=== PATIENT | female | born 1965 | race Caucasian/White ===

== ENCOUNTER → 2019-07-02 | Outpatient (CLI) | payer OTHER ==
--- NOTE | 2019-07-02 14:41 | KCIC ---
MR of the right shoulder HISTORY: Subacromial bursitis. Pain for a few days. TECHNIQUE: Routine multiplanar sequences are obtained. FINDINGS: There is mild image degradation due to motion and body habitus. Acromioclavicular joint is mildly degenerative. Small undersurface osteophytes. Full-thickness rotator cuff tear of the anterior supraspinatus tendon measures about 2.5 cm AP diameter. Tendinosis and partial tearing through the more posterior rotator cuff. Partial subscapularis tendon tear. Moderate muscle atrophy. Mild fluid in the subacromial subdeltoid bursa. Multiple well-defined bodies within the anterior and posterior subdeltoid bursa compatible with loose osteochondral bodies measuring up to 8 mm diameter. Small glenohumeral joint effusion. No advanced degenerative change or acute articular cartilage defect. No evidence of labral tear or detachment. Biceps tendon demonstrates mild medial subluxation, perched over the upper lesser tuberosity. Tendon is mildly attenuated with mild increased signal. No bone destruction or acute fracture. IMPRESSION: 1. Moderate full-thickness rotator cuff tear with retraction of the supraspinatus tendon. Partial tearing through the infraspinatus and subscapularis tendon. 2. Mild fluid in the glenohumeral joint and subdeltoid bursa. Multiple osteochondral loose bodies within the subdeltoid bursa. 3. Biceps tendinosis with mild medial subluxation. Electronically signed by: Julio Cesar Mcconnell MD (07/02/2019 2:38 PM) [facility]
== END | disposition home or self-care (01) ==
LOC: KCIC MRI 12:53
PROVIDERS: ATTEND Orthopaedic Surgery
DX: S46.011A Strain of muscle(s) and tendon(s) of the rotator cuff of right shoulder, initial encounter (principal); S43.081A Other subluxation of right shoulder joint, initial encounter; M25.711 Osteophyte, right shoulder; M62.511 Muscle wasting and atrophy, not elsewhere classified, right shoulder; M25.411 Effusion, right shoulder; M24.011 Loose body in right shoulder; M75.21 Bicipital tendinitis, right shoulder; M75.51 Bursitis of right shoulder; Z96.641 Presence of right artificial hip joint; X58.XXXA Exposure to other specified factors, initial encounter; Y93.89 Activity, other specified; Y92.89 Other specified places as the place of occurrence of the external cause; Y99.8 Other external cause status
CPT/HCPCS: 73221

== ENCOUNTER 2019-08-06 09:33 | Day surgery (SDC) | payer OTHER ==
[~2019-08-06] VITALS: Ht 172.7 cm; Wt 145.0 kg
[~2019-08-06 09:33] MED LIST: HYDROmorphone 2 MG/ML VIAL IV PRN; IV RINGERS,LACTATED 1000ML 1,000 ML IV SCH; LIDOCAINE 1% PF 2 ML VIAL. ID PRN; LIDOCAINE 2% PF 5 ML VIAL. ONE; MORPHINE SULFATE 2 MG/ML VIAL. IV PRN; ONDANSETRON PF 4 MG/2 ML VIAL. IV PRN; PROCHLORPERAZINE 10 MG/2 ML VIAL. IV PRN; PROPOFOL 20 ML IV ONE; ROCURONIUM 50 MG/5 ML VIAL. ONE; ceFAZolin SODIUM 3 GM in IV DEXTROSE 5% 100ML 100 ML IV PRN; fentaNYL PF VIAL 100 MCG/2 ML VIAL IV PRN; fentaNYL PF VIAL 100 MCG/2 ML VIAL ONE
[2019-08-06] MEDS ORDERED: AMLO10TA4 PO (10:15)
[2019-08-06] MEDS ORDERED: IBUP-1027 PO (10:15)
[2019-08-06] MEDS ORDERED: ESCITALOPRAM OX20 MG PO (10:17)
[2019-08-06] MEDS ORDERED: BUPR150T8 PO (10:17)
[2019-08-06] MEDS ORDERED: HYDR-2145 PO (10:19)
[2019-08-06] MEDS ORDERED: ATOR20TA PO (10:20)
[2019-08-06] MEDS ORDERED: OMEG1CAP27 PO (10:21)
[2019-08-06] MEDS ORDERED: MULT1TAB52 PO (10:21)
[2019-08-06 10:44] LABS: BASO % 1 % (0-3); EOS # 0.1 x10^3/uL (0.0-0.7); EOS % 2 % (0-3); HEMATOCRIT 40.1 % (36.0-47.0); HEMOGLOBIN 13.7 g/dL (12.0-15.5); LYMPH # 1.4 x10^3/uL (1.0-4.8); LYMPH % 24 % (24-48); MEAN CORPUSCULAR HEMOGLOBIN 30 pg (25-35); MEAN CORPUSCULAR HGB CONC 34 g/dL (31-37); MEAN CORPUSCULAR VOLUME 88 fL (79-100); MONO # 0.4 x10^3/uL (0.0-1.1); MONO % 7 % (0-9); NEUT # 3.9 x10^3/uL (1.8-7.7); NEUT % 66 % (31-73); PLATELET COUNT 185 x10^3/uL (140-400); RED BLOOD COUNT 4.58 x10^6/uL (3.50-5.40); RED CELL DISTRIBUTION WIDTH 14.7 % (11.5-14.5); WHITE BLOOD COUNT 5.9 x10^3/uL (4.0-11.0)
[2019-08-06 10:51] LABS: CREATININE 0.7 mg/dL (0.6-1.0); GFR 87.5; POTASSIUM 3.5 mmol/L (3.5-5.1)
[2019-08-06] MEDS ORDERED: EPINEPHrine VIAL 30 MG/30 ML VIAL ONE (10:56)
[2019-08-06] MEDS ORDERED: SCOPOLAMINE 1.5MG PATCH. TD SCH (11:00)
[2019-08-06] MEDS ORDERED: MIDAZOLAM HCL/PF 2 MG/2 ML VIAL. ONE (11:53)
[2019-08-06] MEDS ORDERED: EPINEPHrine 1 MG/ML VIAL ONE (11:53)
[2019-08-06] MEDS ORDERED: BUPIVACAINE MPF 0.5% 30 ML VIAL. ONE (11:53)
[2019-08-06] MEDS ORDERED: DEXAMETHASONE SOD PHOS 4 MG/ML VIAL ONE ×2 (11:55→13:00)
[2019-08-06] MEDS ORDERED: FAMOTIDINE 20 MG/2 ML VIAL ONE (13:00)
[2019-08-06] MEDS ORDERED: ONDANSETRON PF 4 MG/2 ML VIAL. ONE (13:00)
[2019-08-06] MEDS ORDERED: DESFLURANE 61 TO 120 MINUTES IH ONE (13:11)
[2019-08-06] MEDS ORDERED: PROPOFOL 20 ML IV ONE (13:49)
[2019-08-06] MEDS ORDERED: VECURONIUM BOLUS 10 MG VIAL. IV ONE (14:19)
[2019-08-06] MEDS ORDERED: 0.9 % SODIUM CHLORIDE 20 ML VIAL. IJ ONE (14:19)
[2019-08-06] MEDS ORDERED: DESFLURANE > 120 MINUTES IH ONE (15:19)
[2019-08-06] MEDS ORDERED: NEOSTIGMINE METHYLSULFATE 5 MG/5 ML SYRINGE. ONE (15:20)
[2019-08-06] MEDS ORDERED: GLYCOPYRROLATE 1 MG/5 ML VIAL. ONE (15:20)
[2019-08-06] MEDS ORDERED: OXYC1TAB19 PO (16:02)
--- NOTE | 2019-08-06 16:04 | DISCH ---
DISCHARGE INSTRUCTIONS Condition on Discharge Condition on Discharge: Stable Activity After Discharge Activity Instructions for Disc: Other, see below (immobilizer on at all times at night may remove during day for gentle pendulum exercises and for showering) Driving Instructions after Dis: Do not drive today Diet after Discharge Diet after Discharge: Regular Wound Incision Care Wound/Incision Care: Ice to area for comfort, Change dressing (May remove dressing in 2 days may then shower no soaking until sutures removed) Community/Resources/Services Services at Discharge: PT EVALUATE & TREAT (plan start of physical therapy on follow-up visit) Contacting the after DC Call your doctor for: Concerns you may have Follow-Up Follow up with: Dr. Mcmahon 10 days SEEMA MCMAHON MD Aug 06, 2019 16:04
[2019-08-06 18:00] VITALS: BP 143/73
--- NOTE | 2019-08-06 18:43 | PDOC4 ---
Operative Note Operative Note Date of surgery: 08/06/2019 Preoperative diagnosis: Full-thickness retracted rotator cuff tear of supraspinatus, acromioclavicular degenerative change and pain, subacromial impingement and biceps pain and fraying Postoperative diagnosis: Same with involvement of anterior supraspinatus with a large retracted tear Operative procedure: Right shoulder arthroscopy arthroscopic subacromial decompression distal clavicle excision and biceps tenotomy and mini open rotator cuff repair Surgeon: Lisandro Anesthesia: Gen. Estimated blood loss: 25 mL Complications: None Operative indications: Please see my preoperative clinic notes for detailed operative indications Operative text: Patient was identified procedure verified patient placed in the supine position on the operating table. After adequate amounts of general anesthesia with plus pre-existing scalene block were obtained she was placed in the decubitus position right side up all bony prominences were well-padded and the right shoulder was examined under anesthesia found a full range of motion no instability. The right shoulder was then prepped and draped in standard sterile fashion and after timeout was performed patient procedure identified and florencia ified standard posterior portal was established anterior portal established using spinal needle localization and the shoulder joint was systematically examined. She was noted to have a large retracted full-thickness tear of the supraspinatus and infraspinatus tendons, biceps tendon was noted to have significant fraying, and was tenotomized, glenohumeral joint was overall well-maintained subacromial space was then entered and the rotator cuff was mobilized and a large anterior acromial spur converted to a type I acromion using cutting block technique with an arthroscopic bur, and distal clavicle excision was carried out to 1 cm to allow adequate joint space. After any bony fragments were cleared away the rotator cuff footprint was prepared with the arthroscopic bur and a total of 3 traction sutures were placed in the rotator cuff tendon to ensure adequate mobility to the footprint area. Given the need for visualization and large nature of the tear I elected to then convert to a mini open incision deltoid splitting laterally and a total of 2 absorbable double loaded anchors from [employer] were placed along the medial row and sutures passed in a simple fashion lateral row fixation incorporated both anchors sutures as well as the traction sutures and were secured laterally with a link anchor obtaining excellent apposition to the medial footprint. The repair was examined in all degrees of internal/external rotation deltoid fascia closed with Vicryl suture subcutaneous closure of the mini open incision and portals with buried Vicryl suture and skin closure with Monocryl suture Steri-Strips and Mastisol. Sterile dressings were applied patient was placed in an immobilizer returned to recovery room in stable condition having tolerated procedure well SEEMA HERNANDEZ MD Aug 06, 2019 18:43
== END 2019-08-06 18:18 | disposition home or self-care (01) ==
LOC: SURG 09:33
PROVIDERS: ATTEND Orthopaedic Surgery
DX: M75.111 Incomplete rotator cuff tear or rupture of right shoulder, not specified as traumatic (principal); M19.011 Primary osteoarthritis, right shoulder; M75.41 Impingement syndrome of right shoulder; M66.821 Spontaneous rupture of other tendons, right upper arm; I10 Essential (primary) hypertension; E78.5 Hyperlipidemia, unspecified; F32.9 Major depressive disorder, single episode, unspecified; Z96.641 Presence of right artificial hip joint; Z98.890 Other specified postprocedural states; Z98.51 Tubal ligation status; Z87.891 Personal history of nicotine dependence; Z72.89 Other problems related to lifestyle
CPT/HCPCS: 23412; 29824; 29826; 29999; 36415; 80048; 85025; A7015; C1713; J0171; J1100; J2001; J2250; J2405; J2704; J2710; J3010; J3490; J7120

== ENCOUNTER 2019-08-21 08:29 | Inpatient (IN) | payer OTHER ==
[~2019-08-21] VITALS: Ht 170.2 cm; Wt 145.1 kg
[~2019-08-21 08:29] MED LIST changes: +AMLO10TA4 PO; +ATOR20TA PO; +BUPR150T8 PO; +ESCITALOPRAM OX20 MG PO; +HYDR-2145 PO; -HYDROmorphone 2 MG/ML VIAL IV PRN; +IBUP-1027 PO; -IV RINGERS,LACTATED 1000ML 1,000 ML IV SCH; -LIDOCAINE 1% PF 2 ML VIAL. ID PRN; -LIDOCAINE 2% PF 5 ML VIAL. ONE; -MORPHINE SULFATE 2 MG/ML VIAL. IV PRN; +MULT1TAB52 PO; +OMEG1CAP27 PO; -ONDANSETRON PF 4 MG/2 ML VIAL. IV PRN; +OXYC1TAB19 PO; -PROCHLORPERAZINE 10 MG/2 ML VIAL. IV PRN; -PROPOFOL 20 ML IV ONE; -ROCURONIUM 50 MG/5 ML VIAL. ONE; -ceFAZolin SODIUM 3 GM in IV DEXTROSE 5% 100ML 100 ML IV PRN; -fentaNYL PF VIAL 100 MCG/2 ML VIAL IV PRN; -fentaNYL PF VIAL 100 MCG/2 ML VIAL ONE
--- NOTE | 2019-08-21 10:08 | EKG ---
[facility] [address] [place] [address] Test Date: 2019-08-21 Test Time: 09:59:42 Pat Name: KRISTIE MILLS Department: Room: Gender: F Reporting Manager: : [id number] Requested By: SUZANNE DOE Order Number: [id number] Reading MD: Javy Lagos MD Measurements Intervals [place] Rate: 83 P: 142 WV: 136 QRS: 36 QRSD: 90 T: 17 QT: 416 QTc: 495 Interpretive Statements SINUS RHYTHM RBBB Electronically Signed On 08-31-2019 10:24:04 CDT by Javy Lagos MD
[2019-08-21 10:22] LABS: BASO % 0 % (0-3); EOS # 0.1 x10^3/uL (0.0-0.7); EOS % 2 % (0-3); HEMATOCRIT 38.7 % (36.0-47.0); HEMOGLOBIN 13.1 g/dL (12.0-15.5); LYMPH # 0.9 x10^3/uL (1.0-4.8); LYMPH % 12 % (24-48); MEAN CORPUSCULAR HEMOGLOBIN 30 pg (25-35); MEAN CORPUSCULAR HGB CONC 34 g/dL (31-37); MEAN CORPUSCULAR VOLUME 88 fL (79-100); MONO # 0.4 x10^3/uL (0.0-1.1); MONO % 5 % (0-9); NEUT # 5.6 x10^3/uL (1.8-7.7); NEUT % 80 % (31-73); PLATELET COUNT 235 x10^3/uL (140-400); RED BLOOD COUNT 4.41 x10^6/uL (3.50-5.40); RED CELL DISTRIBUTION WIDTH 15.8 % (11.5-14.5)
[2019-08-21 10:33] LABS: CALCIUM 9.5 mg/dL (8.5-10.1); CREATININE 0.8 mg/dL (0.6-1.0); POTASSIUM 3.2 mmol/L (3.5-5.1)
[2019-08-21 10:41] LABS: ALBUMIN 3.8 g/dL (3.4-5.0); MAGNESIUM 1.8 mg/dL (1.8-2.4); TOTAL BILIRUBIN 0.5 mg/dL (0.2-1.0); TOTAL PROTEIN 7.6 g/dL (6.4-8.2)
--- NOTE | 2019-08-21 11:08 | PHYS DOC ---
Past Medical History Past Medical History: Depression, High Cholesterol, Hypertension Past Surgical History: Hip Replacement, Tonsillectomy, Tubal ligation, Other Additional Past Surgical Histo: FOOT,CONE BX,BACK, R rotator cuff Alcohol Use: Occasionally Drug Use: None Adult General Chief Complaint Chief Complaint: LOWER EXTREMITY EDEMA HPI HPI Patient is a 54 year old female who presents to the ER with complaints of bilateral lower extremity swelling, redness, warmth, and tenderness for the last week. She states that she had her right shoulder rotator cuff repaired by Dr. Mcmahon 2 weeks ago and denies any known injury to her legs. Pt states she has been a bit more sedentary since having the surgery. She denies any fever, numbness, tingling, or weakness of her lower extremities. She denies any chest pain, but reports increased shortness of breath with activity. She denies any wheezing or cough. Currently she rates her pain a 5/10 on the pain scale, she has been taking oxycodone 7.5/325 mg tablets as prescribed for her shoulder pain and that has also helped with the leg pain. She reports the pain increases with walking or palpation. Review of Systems Review of Systems Constitutional: Denies fever or chills [] Eyes: Denies change in visual acuity, redness, or eye pain [] HENT: Denies nasal congestion or sore throat [] Respiratory: Denies cough; see HPI Cardiovascular: No additional information not addressed in HPI [] GI: Denies abdominal pain, nausea, vomiting, or diarrhea [] : Denies dysuria or hematuria [] Musculoskeletal: See HPI Integument: See HPI Neurologic: Denies headache, focal weakness or sensory changes [] Endocrine: Denies polyuria or polydipsia [] All other systems were reviewed and found to be within normal limits, except as documented in this note. Current Medications Current Medications Current Medications Medications (Trade) Dose Ordered Sig/Esau Start Time Stop Time Status Last Admin Dose Admin Info (CONTRAST GIVEN -- Rx MONITORING) 1 each PRN DAILY PRN 08/21/19 11:30 08/23/19 11:29 Iohexol (Omnipaque 350 Mg/ml) 100 ml 1X ONCE 08/21/19 11:15 08/21/19 11:16 DC 08/21/19 12:20 100 ML Oxycodone/ Acetaminophen (Percocet 7.5/ 325) 1 tab 1X ONCE 08/21/19 11:45 08/21/19 11:46 DC 08/21/19 11:41 1 TAB Potassium Chloride (Klor-Con) 40 meq 1X ONCE 08/21/19 11:15 08/21/19 11:16 DC 08/21/19 11:35 40 MEQ Sodium Chloride 1,000 ml @ 1,000 mls/hr 1X ONCE 08/21/19 11:30 08/21/19 12:29 DC 08/21/19 11:34 1,000 MLS/HR Vancomycin HCl (Vanco Per Pharmacy) 1 each PRN DAILY PRN 08/21/19 13:00 08/21/19 15:51 1 EACH Vancomycin HCl 2 gm/Sodium Chloride 500 ml @ 250 mls/hr 1X ONCE 08/21/19 13:00 08/21/19 14:59 DC 08/21/19 13:14 250 MLS/HR Allergies Allergies Allergies Coded Allergies Type Severity Reaction Last Updated Verified No Known Drug Allergies 08/06/19 No Physical Exam Physical Exam Constitutional: Well developed, well nourished, no acute distress, non-toxic appearance, obese. [] HENT: Normocephalic, atraumatic, bilateral external ears normal, nose normal. [] Eyes: PERRLA, EOMI, conjunctiva normal, no discharge. [] Neck: Normal range of motion, no stridor. [] Cardiovascular:Heart rate regular rhythm, no murmur [] Lungs & Thorax: Bilateral breath sounds clear to auscultation [] Abdomen: soft, no tenderness, no masses, no pulsatile masses. [] Skin: Warm, dry; BLE redness and warmth consistent with cellulitis Back: No tenderness Extremities: Bilateral lower extremity tenderness to palpation, no bony tenderness, no cyanosis, no clubbing, ROM intact, 2+ edema BLE, 2+ pedal and posterior tibial pulses BLE Neurologic: Alert and oriented X 3, no focal deficits noted. [] Psychologic: Affect normal, judgement normal, mood normal. [] Current Patient Data Vital Signs Vital Signs Date Time Temp Pulse Resp B/P (MAP) Pulse Ox O2 Delivery O2 Flow Rate FiO2 08/21/19 12:57 88 25 151/75 (100) 94 Room Air 08/21/19 09:02 98.3 98.3 Lab Values Laboratory Tests Test 08/21/19 09:48 08/21/19 11:30 White Blood Count 7.0 x10^3/uL (4.0-11.0) Red Blood Count 4.41 x10^6/uL (3.50-5.40) Hemoglobin 13.1 g/dL (12.0-15.5) Hematocrit 38.7 % (36.0-47.0) Mean Corpuscular Volume 88 fL (79-100) Mean Corpuscular Hemoglobin 30 pg (25-35) Mean Corpuscular Hemoglobin Concent 34 g/dL (31-37) Red Cell Distribution Width 15.8 % (11.5-14.5) H Platelet Count 235 x10^3/uL (140-400) Neutrophils (%) (Auto) 80 % (31-73) H Lymphocytes (%) (Auto) 12 % (24-48) L Monocytes (%) (Auto) 5 % (0-9) Eosinophils (%) (Auto) 2 % (0-3) Basophils (%) (Auto) 0 % (0-3) Neutrophils # (Auto) 5.6 x10^3/uL (1.8-7.7) Lymphocytes # (Auto) 0.9 x10^3/uL (1.0-4.8) L Monocytes # (Auto) 0.4 x10^3/uL (0.0-1.1) Eosinophils # (Auto) 0.1 x10^3/uL (0.0-0.7) Basophils # (Auto) 0.0 x10^3/uL (0.0-0.2) D-Dimer (Sivan) 1.61 ug/mlFEU (0.00-0.50) H Sodium Level 141 mmol/L (136-145) Potassium Level 3.2 mmol/L (3.5-5.1) L Chloride Level 101 mmol/L (98-107) Carbon Dioxide Level 34 mmol/L (21-32) H Anion Gap 6 (6-14) Blood Urea Nitrogen 13 mg/dL (7-20) Creatinine 0.8 mg/dL (0.6-1.0) Estimated GFR (Cockcroft-Gault) 75.0 BUN/Creatinine Ratio 16 (6-20) Glucose Level 136 mg/dL (70-99) H Calcium Level 9.5 mg/dL (8.5-10.1) Magnesium Level 1.8 mg/dL (1.8-2.4) Total Bilirubin 0.5 mg/dL (0.2-1.0) Aspartate Amino Transferase (AST) 20 U/L (15-37) Alanine Aminotransferase (ALT) 34 U/L (14-59) Alkaline Phosphatase 66 U/L (46-116) Total Protein 7.6 g/dL (6.4-8.2) Albumin 3.8 g/dL (3.4-5.0) Albumin/Globulin Ratio 1.0 (1.0-1.7) Urine Collection Type Void Urine Color Yellow Urine Clarity Clear Urine pH 7.5 Urine Specific Mohler 1.010 Urine Protein Negative mg/dL (NEG-TRACE) Urine Glucose (UA) Negative mg/dL (NEG) Urine Ketones (Stick) Negative mg/dL (NEG) Urine Blood Negative (NEG) Urine Nitrite Negative (NEG) Urine Bilirubin Negative (NEG) Urine Urobilinogen Dipstick 0.2 mg/dL (0.2 mg/dL) Urine Leukocyte Esterase Negative (NEG) Urine RBC Occ /HPF (0-2) Urine WBC Rare /HPF (0-4) Urine Squamous Epithelial Cells Mod /LPF Urine Bacteria Few /HPF (0-FEW) Urine Mucus Slight /LPF Laboratory Tests 08/21/19 09:48 Laboratory Tests 08/21/19 09:48 EKG EKG 0959- SR rate 83, nonspecific changes, RBBB, no STEMI, read by Dr. Steel. [] Radiology/Procedures Radiology/Procedures PROCEDURE: VENOUS LOWER EXT BILATERAL EXAM: Bilateral lower extremity venous Doppler sonogram. HISTORY: Pain and swelling. TECHNIQUE: Sheth scale and color Doppler sonographic evaluation of the bilateral lower extremity veins with spectral waveform analysis was performed. FINDINGS: There is normal color flow, normal compressibility and there are normal spectral waveforms in the common femoral, superficial femoral, and popliteal veins. The calf veins are not well seen due to patient body habitus and soft tissue edema. IMPRESSION: No Doppler evidence of lower extremity deep venous thrombosis, with limited evaluation of the calf veins due to body habitus and soft tissue edema. [] PROCEDURE: CT ANGIOGRAPHY CHEST EXAM: CT angiography of the chest with intravenous contrast. HISTORY: Shortness of breath. TECHNIQUE: Computed tomographic images of the chest were obtained following the administration of 75 cc Omnipaque 350 intravenous contrast according to angiography protocol. Multiplanar reformatting was performed and 3-dimensional maximum intensity projections were obtained. *One or more of the following individualized dose reduction techniques were utilized for this examination: 1. Automated exposure control. 2. Adjustment of the mA and/or kV according to patient size. 3. Use of iterative reconstruction technique. COMPARISON: None. FINDINGS: Evaluation for pulmonary embolism is significantly limited due to suboptimal contrast opacification of the pulmonary arteries. No central embolism is seen. The heart is normal in size. The aorta is normal in caliber. There is a bovine aortic arch branching pattern, a normal variant. No pathologically enlarged lymph node is seen. There is no pneumothorax or pleural effusion. There is posterior dependent and basilar atelectasis. The inferior most lung bases are excluded from the [id number]. No infiltrate or suspicious pulmonary nodule is seen. There is a calcified granuloma within the right lower lobe. There are prominent likely physiologic axillary lymph nodes. There is hepatomegaly and hepatic steatosis. There is no suspicious osseous lesion. IMPRESSION: 1. Significantly limited evaluation for pulmonary embolism due to suboptimal contrast passed can occasionally polar arteries. No central embolism is seen. 2. No acute thoracic finding. 3. Hepatomegaly and hepatic steatosis. Course & Med Decision Making Course & Med Decision Making Pertinent Labs and Imaging studies reviewed. (See chart for details) dx: BLE cellulitis CBC unremarkable; CMP: K 3.2; glucose 136 otherwise unremarkable; D-dimer 1.61; UA unremarkable CT chest negative for PE US BLE negative for DVT Vancomycin ordered for pharmacy to dose. Pt was given 40 meq KCl, 1L NS, and one oxycodone 7.5/325 mg tablet in the ER. Will admit to Dr. Lay for cellulitis of BLE [] Nahomy Disclaimer Nahomy Disclaimer This electronic medical record was generated, in whole or in part, using a voice recognition dictation system. Departure Departure Impression: Primary Impression: Cellulitis of both lower extremities Disposition: ADMITTED INPATIENT Admitting Physician: DELANO lea) Condition: STABLE Referrals: GENESIS MESA MD (PCP) SUZANNE DOE APRN Aug 21, 2019 11:08
[2019-08-21] MEDS ORDERED: POTASSIUM CHLORIDE 20 MEQ TABLET.ER. PO ONE (11:15)
[2019-08-21] MEDS ORDERED: IOHEXOL 350 MG/ML 100 ML VIAL. IV ONE (11:15)
[2019-08-21] MEDS ORDERED: CONTRAST GIVEN. MC PRN (11:30)
[2019-08-21] MEDS ORDERED: IV NORMAL SALINE 1000ML BAG 1,000 ML IV ONE (11:30)
[2019-08-21 11:39] LABS: BILIRUBIN,URINE NEGATIVE (NEG); CLARITY,URINE CLEAR; COLOR,URINE YELLOW; NITRITE,URINE NEGATIVE (NEG); PH,URINE 7.5; PROTEIN,URINE NEGATIVE (NEG-TRACE); UROBILINOGEN,URINE 0.2 mg/dL (0.2 mg/dL)
[2019-08-21] MEDS ORDERED: oxyCODONE/APAP 7.5/325 1 TAB TABLET PO ONE (11:45)
--- NOTE | 2019-08-21 11:51 | RAD ---
EXAM: Bilateral lower extremity venous Doppler sonogram. HISTORY: Pain and swelling. TECHNIQUE: Sheth scale and color Doppler sonographic evaluation of the bilateral lower extremity veins with spectral waveform analysis was performed. FINDINGS: There is normal color flow, normal compressibility and there are normal spectral waveforms in the common femoral, superficial femoral, and popliteal veins. The calf veins are not well seen due to patient body habitus and soft tissue edema. IMPRESSION: No Doppler evidence of lower extremity deep venous thrombosis, with limited evaluation of the calf veins due to body habitus and soft tissue edema. Electronically signed by: Mary Jane Machado MD (08/21/2019 11:48 AM) [facility]
[2019-08-21 11:59] LABS: SQUAMOUS EPITHELIAL CELL,UR MOD /LPF
[2019-08-21 12:00] LABS: BACTERIA,URINE FEW /HPF (0-FEW); RBC,URINE OCC /HPF (0-2); WBC,URINE RARE /HPF (0-4)
--- NOTE | 2019-08-21 12:42 | RAD ---
EXAM: CT angiography of the chest with intravenous contrast. HISTORY: Shortness of breath. TECHNIQUE: Computed tomographic images of the chest were obtained following the administration of 75 cc Omnipaque 350 intravenous contrast according to angiography protocol. Multiplanar reformatting was performed and 3-dimensional maximum intensity projections were obtained. *One or more of the following individualized dose reduction techniques were utilized for this examination: 1. Automated exposure control. 2. Adjustment of the mA and/or kV according to patient size. 3. Use of iterative reconstruction technique. COMPARISON: None. FINDINGS: Evaluation for pulmonary embolism is significantly limited due to suboptimal contrast opacification of the pulmonary arteries. No central embolism is seen. The heart is normal in size. The aorta is normal in caliber. There is a bovine aortic arch branching pattern, a normal variant. No pathologically enlarged lymph node is seen. There is no pneumothorax or pleural effusion. There is posterior dependent and basilar atelectasis. The inferior most lung bases are excluded from the [id number]. No infiltrate or suspicious pulmonary nodule is seen. There is a calcified granuloma within the right lower lobe. There are prominent likely physiologic axillary lymph nodes. There is hepatomegaly and hepatic steatosis. There is no suspicious osseous lesion. IMPRESSION: 1. Significantly limited evaluation for pulmonary embolism due to suboptimal contrast passed can occasionally polar arteries. No central embolism is seen. 2. No acute thoracic finding. 3. Hepatomegaly and hepatic steatosis. Electronically signed by: Mary Jane Machado MD (08/21/2019 12:39 PM) [facility]
[2019-08-21] MEDS ORDERED: VANCOMYCIN PER PHARMACY MC PRN (13:00)
[2019-08-21] MEDS ORDERED: VANCOMYCIN 2 GM in IV NORMAL SALINE 500ML BAG 500 ML IV ONE (13:00)
[2019-08-21 14:55] VITALS: BP 170/81
--- NOTE | 2019-08-21 15:51 | NUR ---
Pharmacy Vancomycin Dosing Note S:Consulted to monitor and dose vancomycin started 08/21/19. O:KRISTIE MILLS is a 54 year old F with Cellulitis . Height: 5 feet, 7 inches Weight: 145.535694 kg [place] Body Weight: 61.60 Adjusted Body Weight: 94.96 Dosing Weight: Actual Other Antibiotics: NONE LABS: Last BUN: 13 Last Creatinine: 0.8 Creatinine Clearance: >120 mL/min Last WBC: 7 Last Procalcitonin: - Tmax (past 24 hours): 98.3 Microbiology: 08/21 PENDING I/O: - Drug Levels: Last level: on at Last dose given 08/21/19 at 1300 Vancomycin Dosing: Loading Dose: x1 Dosing Weight: Actual Target Trough: 10-20 A: Based on: weight, crcl>120, nonsevere infection (cellulitis), P: 1. Initiate Vancomycin 2000 mg IV q12h 2. Follow up Trough level on 08/23/19 at 0030 3. Pharmacy will continue to monitor, follow and adjust therapy as needed. SHYAM DUGGAN [facility], 08/21/19 1455
[2019-08-21] MEDS: oxyCODONE/APAP 7.5/325 1 TAB TABLET PO PRN ×2 (16:17→20:37)
[2019-08-21 19:00] VITALS: BP 113/71
[2019-08-21] MEDS ORDERED: cefTRIAXone IV Push 1 GM VIAL. IVP SCH (19:00)
--- NOTE | 2019-08-21 19:48 | HP ---
ADMIT DATE: 08/21/2019 CHIEF COMPLAINT: Lower extremity edema and pain. HISTORY OF PRESENT ILLNESS: The patient is a pleasant 54-year-old female who presents with lower extremity edema and swelling. It is red. It appears she has cellulitis. I have discussed the case with the ER physician. We are going to admit the patient and give her IV antibiotics. I am also going to consult Dr. Mcmahon because the patient had shoulder surgery 2 weeks ago. PAST MEDICAL HISTORY: Obesity, hypertension, hyperlipidemia, depression, hip replacement, tonsillectomy, right shoulder surgery, foot surgery and back surgery. ALLERGIES: None. FAMILY HISTORY: Hypertension. 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 MEDICATIONS: Reviewed, please refer to the MRAD. REVIEW OF SYSTEMS: GENERAL: No history of weight change, weakness or fevers. SKIN: No bruising, hair changes or rashes. EYES: No blurred, double or loss of vision. NOSE AND THROAT: No history of nosebleeds, hoarseness or sore throat. HEART: No history of palpitations, chest pain or shortness of breath on exertion. LUNGS: Denies cough, hemoptysis, wheezing or shortness of breath. GASTROINTESTINAL: Denies changes in appetite, nausea, vomiting, diarrhea or constipation. GENITOURINARY: No history of frequency, urgency, hesitancy or nocturia. NEUROLOGIC: Denies history of numbness, tingling, tremor or weakness. PSYCHIATRIC: No history of panic, anxiety or depression. ENDOCRINE: No history of heat or cold intolerance, polyuria or polydipsia. EXTREMITIES: She complains of bilateral lower extremity swelling and pain. PHYSICAL EXAMINATION: VITALS: Within normal limits and are stable. GENERAL: No apparent distress. Alert and oriented. HEENT: Head is normocephalic, atraumatic, pupils were equally round and reactive to light and accommodation. NECK: Supple, no JVD, no thyromegaly was noted. LUNGS: Clear to auscultation in all lung zacarias without rhonchi or wheezing. HEART: RRR, S1, S2 present. Peripheral pulses intact, no obvious murmurs were noted. ABDOMEN: Soft, nontender. Positive bowel sounds no organomegaly, normal bowel sounds. EXTREMITIES: She has bilateral cellulitis of the lower extremities. The right shoulder has clean, dry and intact incisions. NEUROLOGIC: Normal speech, normal tone. A & O x3, moves all extremities, no obvious focal deficits. PSYCHIATRIC: Normal affect, normal mood. Stable. SKIN: No ulcerations or rashes, good skin turgor, no jaundice. VASCULAR: Good capillary refill, neurovascular bundle appears to be intact. HEMATOLOGY: Normal. Electrolytes are normal other than potassium 3.2. ASSESSMENT AND PLAN: Cellulitis and hypokalemia. The patient has been admitted. We will replace her potassium, IV antibiotics. Consult Ortho. DVT prophylaxis. Home meds, PT, OT. NIAL Veronica MIRZA DO DR: JUSTYNA/linda JOB#: [id number] / [id number]
[2019-08-21] MEDS: LACTOBACILLUS RHAMNOSUS GG 1 CAPSULE. PO SCH (20:37)
[2019-08-21 23:00] VITALS: BP 164/88
[2019-08-22] MEDS: VANCOMYCIN 2 GM in IV NORMAL SALINE 500ML BAG 500 ML IV SCH ×2 (01:20→13:00)
[2019-08-22] MEDS: oxyCODONE/APAP 7.5/325 1 TAB TABLET PO PRN ×2 (01:25→07:41)
[2019-08-22 06:00] VITALS: BP 139/71
[2019-08-22 07:05] LABS: CREATININE 0.7 mg/dL (0.6-1.0); GFR 87.5
[2019-08-22] MEDS: LACTOBACILLUS RHAMNOSUS GG 1 CAPSULE. PO SCH (07:39)
[2019-08-22] MEDS ORDERED: ZOLPIDEM 5 MG TABLET. PO PRN (09:00)
[2019-08-22] MEDS ORDERED: ACETAMINOPHEN 500 MG TABLET PO PRN (09:00)
[2019-08-22] MEDS ORDERED: IBUPROFEN 400 MG TABLET. PO PRN (09:00)
[2019-08-22] MEDS ORDERED: MORPHINE SULFATE 2 MG/ML VIAL. IV PRN (09:00)
[2019-08-22] MEDS ORDERED: cloNIDine HCL 0.1 MG TABLET PO PRN (09:00)
[2019-08-22] MEDS ORDERED: ONDANSETRON PF 4 MG/2 ML VIAL. IVP PRN (09:00)
[2019-08-22] MEDS ORDERED: CITALOPRAM 20 MG TABLET. PO SCH (10:00)
[2019-08-22] MEDS ORDERED: amLODIPine BESYLATE 10 MG TABLET PO SCH (10:00)
[2019-08-22] MEDS ORDERED: MULTIVITAMIN with MINERAL TABLET. PO SCH (10:00)
[2019-08-22] MEDS ORDERED: buPROPion SR 150 MG TABLET.SA PO SCH (10:00)
[2019-08-22] MEDS ORDERED: OMEGA-3 FATTY ACIDS/FISH OIL 1,000 MG CAPSULE. PO SCH (10:00)
[2019-08-22] MEDS ORDERED: hydroCHLOROthiazide 25 MG TABLET PO SCH (10:00)
[2019-08-22 11:00] VITALS: BP 140/70
[2019-08-22 11:02] VITALS: BP 139/71
[2019-08-22] MEDS ORDERED: OXYC1TAB19 PO (12:04)
[2019-08-22] MEDS ORDERED: AMOX1TAB61 PO (12:04)
[2019-08-22] MEDS ORDERED: CELE100C PO (12:04)
--- NOTE | 2019-08-22 12:07 | PDOC3 ---
Discharge Summary Visit Information Date of Admission: Aug 21, 2019 Date of Discharge: Aug 22, 2019 Admitting Diagnosis Comment: cellulitis both LE Obesity REcent RT arm fx - healing on track HTN HYpokalemia 3.2 Final Diagnosis Problems Medical Problems: (1) Cellulitis of both lower extremities Status: Acute Brief Hospital Course Allergies Allergies Coded Allergies Type Severity Reaction Last Updated Verified No Known Drug Allergies 08/06/19 No Vital Signs Vital Signs Date Time Temp Pulse Resp B/P (MAP) Pulse Ox O2 Delivery O2 Flow Rate FiO2 08/22/19 11:02 71 139/71 08/22/19 08:41 Room Air 08/22/19 06:00 97.3 16 94 97.3 Lab Results Laboratory Tests Test 08/21/19 09:48 08/21/19 11:30 08/22/19 06:40 White Blood Count 7.0 x10^3/uL (4.0-11.0) Red Blood Count 4.41 x10^6/uL (3.50-5.40) Hemoglobin 13.1 g/dL (12.0-15.5) Hematocrit 38.7 % (36.0-47.0) Mean Corpuscular Volume 88 fL (79-100) Mean Corpuscular Hemoglobin 30 pg (25-35) Mean Corpuscular Hemoglobin Concent 34 g/dL (31-37) Red Cell Distribution Width 15.8 % (11.5-14.5) Platelet Count 235 x10^3/uL (140-400) Neutrophils (%) (Auto) 80 % (31-73) Lymphocytes (%) (Auto) 12 % (24-48) Monocytes (%) (Auto) 5 % (0-9) Eosinophils (%) (Auto) 2 % (0-3) Basophils (%) (Auto) 0 % (0-3) Neutrophils # (Auto) 5.6 x10^3/uL (1.8-7.7) Lymphocytes # (Auto) 0.9 x10^3/uL (1.0-4.8) Monocytes # (Auto) 0.4 x10^3/uL (0.0-1.1) Eosinophils # (Auto) 0.1 x10^3/uL (0.0-0.7) Basophils # (Auto) 0.0 x10^3/uL (0.0-0.2) D-Dimer (Sivan) 1.61 ug/mlFEU (0.00-0.50) Sodium Level 141 mmol/L (136-145) Potassium Level 3.2 mmol/L (3.5-5.1) Chloride Level 101 mmol/L (98-107) Carbon Dioxide Level 34 mmol/L (21-32) Anion Gap 6 (6-14) Blood Urea Nitrogen 13 mg/dL (7-20) Creatinine 0.8 mg/dL (0.6-1.0) 0.7 mg/dL (0.6-1.0) Estimated GFR (Cockcroft-Gault) 75.0 87.5 BUN/Creatinine Ratio 16 (6-20) Glucose Level 136 mg/dL (70-99) Calcium Level 9.5 mg/dL (8.5-10.1) Magnesium Level 1.8 mg/dL (1.8-2.4) Total Bilirubin 0.5 mg/dL (0.2-1.0) Aspartate Amino Transf (AST/SGOT) 20 U/L (15-37) Alanine Aminotransferase (ALT/SGPT) 34 U/L (14-59) Alkaline Phosphatase 66 U/L (46-116) Total Protein 7.6 g/dL (6.4-8.2) Albumin 3.8 g/dL (3.4-5.0) Albumin/Globulin Ratio 1.0 (1.0-1.7) Urine Collection Type Void Urine Color Yellow Urine Clarity Clear Urine pH 7.5 Urine Specific [place] 1.010 Urine Protein Negative mg/dL (NEG-TRACE) Urine Glucose (UA) Negative mg/dL (NEG) Urine Ketones (Stick) Negative mg/dL (NEG) Urine Blood Negative (NEG) Urine Nitrite Negative (NEG) Urine Bilirubin Negative (NEG) Urine Urobilinogen Dipstick 0.2 mg/dL (0.2 mg/dL) Urine Leukocyte Esterase Negative (NEG) Urine RBC Occ /HPF (0-2) Urine WBC Rare /HPF (0-4) Urine Squamous Epithelial Cells Mod /LPF Urine Bacteria Few /HPF (0-FEW) Urine Mucus Slight /LPF Erythrocyte Sedimentation Rate 22 (0-25) Laboratory Tests Test 08/22/19 06:40 Erythrocyte Sedimentation Rate 22 (0-25) Creatinine 0.7 mg/dL (0.6-1.0) Estimated GFR (Cockcroft-Gault) 87.5 Brief Hospital Course Ms. Callaway is a 54 old white female, came in for bilateral LE cellulitis, got better overnight with IV vanc and rocephin by colleague, LEgs look great, SOme mild hypokal 3.2 i corrected, ALso recently fxed her RT arm, ortho consulted, healing on track.She did request for refill of her perccoet 7,5 She has not tried any OP abx piror to this admission HOme today, augmentin, celebrex, PO percocet seen and examined dw rn consults: ortho Proc; NOne Discharge Information Condition at Discharge: Improved, Stable Follow Up: Weeks (pcp if not any better) Disposition/Orders: D/C to Home Scheduled Amlodipine Besylate (Norvasc) 10 Mg Tablet, 10 MG PO DAILY for htn, (Reported) Entered as Reported by: KERRI ISABEL on 08/06/19 1015 Last Action: Continued on 08/22/19856 by SERGE CORNELL Amoxicillin/Potassium Clav (Augmentin 875-125 Tablet) 1 Each Tablet, 1 TAB PO BID for cellulitis, #20 Prescribed by: SERGE CORNELL on 08/22/19 1204 Atorvastatin Calcium (Lipitor) 20 Mg Tablet, 20 MG PO HS for FOR CHOLESTEROL, #30 Ref 0 (Reported) Entered as Reported by: KERRI ISABEL on 08/06/19 1020 Last Action: Continued on 08/22/19856 by SERGE CORNELL Bupropion Hcl (Wellbutrin Sr) 150 Mg Tablet.er, 1 TAB PO BID for depression, #60 Ref 5 (Reported) Entered as Reported by: KERRI ISABEL on 08/06/19 1017 Last Action: Continued on 08/22/19856 by SERGE CORNELL Celecoxib (Celebrex) 100 Mg Capsule, 1 CAP PO BID for cellulitus, #30 Ref 3 Prescribed by: SERGE CORNELL on 08/22/19 1204 Escitalopram Oxalate (Escitalopram Oxalate) 20 Mg Tablet, 1 TAB PO DAILY for depression, #30 Ref 5 (Reported) Entered as Reported by: KERRI ISABEL on 08/06/19 1017 Last Action: Converted on 08/22/19856 by SERGE CORNELL Hydrochlorothiazide (Hydrochlorothiazide Tablet ) 25 Mg Tablet, 25 MG PO DAILY for DIURETIC, Ref 0 (Reported) Entered as Reported by: KERRI ISABEL on 08/06/19 1019 Last Action: Continued on 08/22/19856 by SERGE CORNELL Multivitamin (Multivitamins) 1 Each Tablet, 1 TAB PO DAILY for vitamin, #90 Ref 3 (Reported) Entered as Reported by: KERRI ISABEL on 08/06/19 1021 Last Action: Converted on 08/22/19856 by SERGE CORNELL [place]-3 Fatty Acids/Fish Oil (Fish Oil 1,000 Mg Softgel) 1 Each Capsule, 2 EACH PO DAILY for heart, (Reported) Entered as Reported by: KERRI ISABEL on 08/06/19 1021 Last Action: Converted on 08/22/19856 by SERGE CORNELL Scheduled PRN Ibuprofen (Ibuprofen) 400 Mg Tablet, 400 MG PO PRN Q6HRS PRN for INFLAMMATION, (Reported) Entered as Reported by: KERRI ISABEL on 08/06/19 1015 Last Action: Continued on 08/22/19856 by SERGE CORNELL Oxycodone/Apap 7.5-325 (Percocet 7.5-325 Mg Tablet ) 1 Each Tablet, 1 TAB PO PRN Q4HRS PRN for PAIN, #30 Ref 0 Prescribed by: SERGE CORNELL on 08/22/19 1204 SERGE CORNELL MD Aug 22, 2019 12:07
--- NOTE | 2019-08-22 15:41 | NUR ---
Pt discharging home with self care. Discharge instructions and prescriptions discussed. Pt verbalized understanding. Belongings packed by pt. She ambulated to ED entrance and was secured in her vehicle.
--- NOTE | 2019-08-22 17:37 | CONS ---
DATE OF CONSULTATION: ORTHOPEDIC CONSULTATION REASON FOR CONSULTATION: Right shoulder. HISTORY OF PRESENT ILLNESS: The patient is about 2 weeks out from outpatient surgery for right shoulder repair of a massive rotator cuff tear. She is otherwise doing reasonably well in terms of the shoulder itself. She has had no wound problems with it. She did get a refill of medication. She only got a week worth of her Percocet originally. She was admitted for cellulitis of bilateral lower extremities as an unrelated matter. She is currently in her shoulder immobilizer. Her wounds are well healed. There is no redness or erythema whatsoever. Distal neurovascular status intact. I removed her Steri-Strips and exposed Monocryl suture and wrote her prescription for physical therapy that she can start about 08/30, after a week, for gentle passive range of motion of the shoulder. 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 I plan to see her back in about 4 weeks for a recheck of her progress. SEEMA HERNANDEZ MD DR: ESTEE/linda JOB#: [id number] / [id number]
[2019-08-22] MEDS ORDERED: ATORVASTATIN CALCIUM 20 MG TABLET PO SCH (21:00)
== END 2019-08-22 15:00 | disposition home or self-care (01) | DRG 603 ==
LOC: ER 08:29 → 4 NORTH 13:03
PROVIDERS: ADMIT Internal Medicine; ATTEND Internal Medicine
DX: L03.115 Cellulitis of right lower limb (principal); E78.00 Pure hypercholesterolemia, unspecified; L03.116 Cellulitis of left lower limb; I10 Essential (primary) hypertension; F32.9 Major depressive disorder, single episode, unspecified; Z96.649 Presence of unspecified artificial hip joint; E78.5 Hyperlipidemia, unspecified; E87.6 Hypokalemia; Z82.49 Family history of ischemic heart disease and other diseases of the circulatory system
CPT/HCPCS: 36415; 71275; 80053; 81001; 82565; 83735; 85025; 85379; 85651; 93005; 93970; 96360; 96361; J0696; J3370; J7030; J7040; Q9967; 99285-25; G0378

== ENCOUNTER 2019-08-30 16:36 | Inpatient (IN) | payer OTHER ==
[~2019-08-30] VITALS: Ht 170.2 cm; Wt 145.2 kg
[~2019-08-30 16:36] MED LIST changes: +AMOX1TAB61 PO; +CELE100C PO
[2019-08-30 19:00] VITALS: BP 147/70
[2019-08-30] MEDS ORDERED: ONDA4DIS4 IJ (19:03)
[2019-08-30] MEDS ORDERED: ZOLP5TAB PO (19:03)
[2019-08-30] MEDS ORDERED: ACET325T9 PO (19:03)
--- NOTE | 2019-08-30 19:42 | NUR ---
KIRSTIE CAME HERE AFTER GOING TO URGENT CARE. SHE HAD RIGHT ROTATOR CUFF RREPAIR ON 08/06. 1 WEEK LETTER SHE DEVELOPED SWLLING IN HER LOWER EXTREMTIES. SHE WENT TO THE ER ON AUG 21 AND WAS ADMITTED FOR 24 HRS ON VANCO AND WENT HOME ON AUGMENTIN. THE AUGMENTIN HAS NOT HELPED AND HER LEGS ARE SWOLLEN AND REDDENED. SHE IS HERE FOR ANTIBIOTICS
[2019-08-30] MEDS ORDERED: VANCOMYCIN 2 GM in IV NORMAL SALINE 500ML BAG 500 ML IV ONE (20:30)
[2019-08-30] MEDS: CELECOXIB 100 MG CAPSULE. PO SCH (21:03)
[2019-08-30] MEDS: buPROPion SR 150 MG TABLET.SA PO SCH (21:03)
[2019-08-30] MEDS: ATORVASTATIN CALCIUM 20 MG TABLET PO SCH (21:03)
[2019-08-30] MEDS: VANCOMYCIN PER PHARMACY MC PRN (21:15)
--- NOTE | 2019-08-30 21:16 | NUR ---
Pharmacy Vancomycin Dosing Note S: Consulted to monitor and dose vancomycin started 08/30/19. O: KRISTIE MILLS is a 54 year old F with worsening Cellulitis, outpatient AUGMENTIN failure. Other Antibiotics: none LABS: Last BUN: 13 Last Creatinine: 0.7 Creatinine Clearance: > 100 mL/min Last WBC: 7.0 from 08/21/19 Tmax (past 24 hours): AFEBRILE Vancomycin Dosing: Dosing Weight: Actual Target Trough: 10-20 A: Based on: VANCO dosing guidelines P: 1. Begin Vancomycin 2000 mg IV q12h 2. Follow up Trough level on 09/01/19 at 0830 3. Pharmacy will continue to monitor, follow and adjust therapy as needed. ALYCE ALEXANDER, [facility], 08/30/19 [id number]
[2019-08-30] MEDS: oxyCODONE/APAP 7.5/325 1 TAB TABLET PO PRN (22:23)
[2019-08-30 22:46] VITALS: BP 178/94
[2019-08-31 03:00] VITALS: BP 169/85
[2019-08-31] MEDS: oxyCODONE/APAP 7.5/325 1 TAB TABLET PO PRN ×4 (03:37→22:51)
[2019-08-31 04:41] LABS: BASO % 0 % (0-3); EOS # 0.2 x10^3/uL (0.0-0.7); EOS % 4 % (0-3); HEMATOCRIT 35.5 % (36.0-47.0); HEMOGLOBIN 11.8 g/dL (12.0-15.5); LYMPH # 1.3 x10^3/uL (1.0-4.8); LYMPH % 22 % (24-48); MEAN CORPUSCULAR HEMOGLOBIN 30 pg (25-35); MEAN CORPUSCULAR HGB CONC 33 g/dL (31-37); MEAN CORPUSCULAR VOLUME 89 fL (79-100); MONO # 0.4 x10^3/uL (0.0-1.1); MONO % 6 % (0-9); NEUT % 68 % (31-73); PLATELET COUNT 203 x10^3/uL (140-400); RED CELL DISTRIBUTION WIDTH 15.7 % (11.5-14.5); WHITE BLOOD COUNT 5.9 x10^3/uL (4.0-11.0)
[2019-08-31 05:32] LABS: CREATININE 0.7 mg/dL (0.6-1.0); GFR 87.5; POTASSIUM 3.4 mmol/L (3.5-5.1)
[2019-08-31 07:00] VITALS: BP 142/78
[2019-08-31] MEDS ORDERED: MORPHINE SULFATE 2 MG/ML VIAL. IV PRN (08:15)
[2019-08-31] MEDS ORDERED: cloNIDine HCL 0.1 MG TABLET PO PRN (08:15)
[2019-08-31] MEDS ORDERED: ONDANSETRON PF 4 MG/2 ML VIAL. IVP PRN (08:15)
[2019-08-31] MEDS ORDERED: POTASSIUM CHLORIDE 20 MEQ TABLET.ER. PO ONE (08:15)
[2019-08-31] MEDS ORDERED: cloNIDine HCL 0.1 MG TABLET PO ONE (08:15)
[2019-08-31] MEDS ORDERED: ACETAMINOPHEN 500 MG TABLET PO PRN (08:15)
[2019-08-31] MEDS: CITALOPRAM 20 MG TABLET. PO SCH (08:56)
[2019-08-31] MEDS: MULTIVITAMIN with MINERAL TABLET. PO SCH (08:56)
[2019-08-31] MEDS: hydroCHLOROthiazide 25 MG TABLET PO SCH (08:56)
[2019-08-31] MEDS: CELECOXIB 100 MG CAPSULE. PO SCH ×2 (08:56→20:50)
[2019-08-31] MEDS: buPROPion SR 150 MG TABLET.SA PO SCH ×2 (08:56→20:50)
[2019-08-31] MEDS: amLODIPine BESYLATE 10 MG TABLET PO SCH (08:57)
[2019-08-31] MEDS: OMEGA-3 FATTY ACIDS/FISH OIL 1,000 MG CAPSULE. PO SCH (08:57)
[2019-08-31] MEDS: VANCOMYCIN 2 GM in IV NORMAL SALINE 500ML BAG 500 ML IV SCH ×2 (10:18→20:50)
[2019-08-31 10:53] VITALS: BP 138/69
--- NOTE | 2019-08-31 10:57 | PDOC1 ---
History and Physical Date of Admission Date of Admission DATE: 08/31/19 TIME: 10:52 Identification/Chief Complaint Chief Complaint legs red and swollen Source Source: Caregiver, Chart review, Patient History of Present Illness History of Present Illness She is a direct admit from PCP office, I spoke with PCP, I recently dcd her 1 week ago for the same dx, bilateral LE cellulitis, I was treating with IV vanc and dcd on PO augmentin and she had 2-3 days worth of pills remaining but cellulitis recurred. Legs mildy red, mildly swollen, hot to touch, no open skin lesions, no fevers FAILED OP abx (augmentin). ESR 25, NOrmal WBC, no fevers, REcent rt arm fx on sling - Dr farah has seen during last admission and is on track in healing process. This time I will admit ID consult,. since, failed OP ABx and is a [place] Past Medical History Cardiovascular: HTN, Hyperlipidemia Past Surgical History Past Surgical History: Other (RTarm) Family History Family History: Hypertension Social History Smoke: No ALCOHOL: none Drugs: None Current Medications Current Medications Current Medications Amlodipine Besylate (Norvasc) 10 mg DAILY PO Last administered on 08/31/19 08:57; Start 08/31/19 at 09:00 Atorvastatin Calcium (Lipitor) 20 mg HS PO Last administered on 08/30/19at 21:03; Start 08/30/19 at 21:00 Bupropion HCl (Wellbutrin Sr) 150 mg BID PO Last administered on 08/31/19 08:56; Start 08/30/19 at 21:00 Celecoxib (CeleBREX) 100 mg BID PO Last administered on 08/31/19 08:56; Start 08/30/19 at 21:00 Hydrochlorothiazide (Hydrodiuril) 25 mg DAILY PO Last administered on 08/31/19 08:56; Start 08/31/19 at 09:00 Oxycodone/ Acetaminophen (Percocet 7.5/ 325) 1 tab PRN Q4HRS PRN PO PAIN Last administered on 08/31/19 08:56; Start 08/30/19 at 19:00 Citalopram Hydrobromide (CeleXA) 40 mg DAILY PO Last administered on 08/31/19 08:56; Start 08/31/19 at 09:00 Multivitamins (Thera M Plus) 1 tab DAILY PO Last administered on 08/31/19 08:56; Start 08/31/19 at 09:00 Fish Oil (Fish Oil) 2,000 mg DAILY PO Last administered on 08/31/19at 08:57; Start 08/31/19 at 09:00 Vancomycin HCl (Vanco Per Pharmacy) 1 each PRN DAILY PRN MC SEE COMMENTS Last administered on 08/30/19at 21:15; Start 08/30/19 at 19:15 Vancomycin HCl 2 gm/Sodium Chloride 500 ml @ 250 mls/hr 1X ONCE IV Last administered on 08/30/19at 21:00; Start 08/30/19 at 20:30; Stop 08/30/19 at 22:29; Status DC Vancomycin HCl 2 gm/Sodium Chloride 500 ml @ 250 mls/hr Q12H IV Last administered on 08/31/19at 10:18; Start 08/31/19 at 09:00 Vancomycin HCl (Vancomycin Trough Level) 1 each 1X ONCE MC ; Start 09/01/19 at 08:30; Stop 09/01/19 at 08:31 Potassium Chloride (Klor-Con) 40 meq 1X ONCE PO Last administered on 08/31/19at 08:55; Start 08/31/19 at 08:15; Stop 08/31/19 at 08:18; Status DC Ondansetron HCl (Zofran) 4 mg PRN Q6HRS PRN IVP NAUSEA/VOMITING; Start 08/31/19 at 08:15 Acetaminophen (Tylenol) 500 mg PRN Q6HRS PRN PO MILD PAIN / TEMP; Start 08/31/19 at 08:15 Morphine Sulfate (Morphine Sulfate) 2 mg PRN Q2HR PRN IV PAIN; Start 08/31/19 at 08:15 Clonidine HCl (Catapres) 0.1 mg 1X ONCE PO Last administered on 08/31/19at 08:55; Start 08/31/19 at 08:15; Stop 08/31/19 at 08:18; Status DC Clonidine HCl (Catapres) 0.1 mg PRN Q1HR PRN PO HYPERTENSION; Start 08/31/19 at 08:15 Active Scripts Active Augmentin 875-125 Tablet (Amoxicillin/Potassium Clav) 1 Each Tablet 1 Tab PO BID Celebrex (Celecoxib) 100 Mg Capsule 1 Cap PO BID Percocet 7.5-325 Mg Tablet (Oxycodone/Acetaminophen) 1 Each Tablet 1 Tab PO PRN Q4HRS PRN Reported Ondansetron HCl 4 mg/2 ml Syr (Ondansetron HCl/Pf) 4 Mg/2 Ml Syringe 4 Mg IJ PRN Q6HRS PRN Tylenol (Acetaminophen) 325 Mg Tablet 650 Mg PO PRN Q4HRS PRN Ambien (Zolpidem Tartrate) 5 Mg Tablet 5 Mg PO PRN QHS PRN Multivitamins (Multivitamin) 1 Each Tablet 1 Tab PO DAILY Fish Oil 1,000 Mg Softgel ([place]-3 Fatty Acids/Fish Oil) 1 Each Capsule 2 Each PO DAILY Lipitor (Atorvastatin Calcium) 20 Mg Tablet 20 Mg PO HS Hydrochlorothiazide Tablet (Hydrochlorothiazide) 25 Mg Tablet 25 Mg PO DAILY Escitalopram Oxalate 20 Mg Tablet 1 Tab PO DAILY Wellbutrin Sr (Bupropion Hcl) 150 Mg Tablet.er 1 Tab PO BID Norvasc (Amlodipine Besylate) 10 Mg Tablet 10 Mg PO DAILY Allergies Allergies: Coded Allergies: No Known Drug Allergies (Unverified , 08/06/19) ROS Review of System as per HPi, the rest 14 pt reviewed neg Physical Exam General: Alert, Oriented X3, Cooperative, No acute distress HEENT: Atraumatic, PERRLA, EOMI Lungs: Clear to auscultation, Normal air movement Heart: S1S2, RRR, no thrills, no rubs, no gallops, no murmurs Cardiovascular: S1, S2 Breasts: Normal, Rt breast nml w/o mass, Lt breast nml w/o mass, Nipples normal Abdomen: Normal bowel sounds, Soft, No tenderness, No hepatosplenomegaly, No masses Rectal Exam: not examined PELVIC: Nml ext genitalia Skin: Other (legs both LE mildy red, mildly swollen, warm to touch, no open skin lesions, good pulses) Neuro: Normal gait, Normal speech, Strength at 5/5 X4 ext, Normal tone, Sensation intact, Cranial nerves 3-12 NL, Reflexes 2+ Psych/Mental Status: Mental status NL, Mood NL Vitals Vitals Vital Signs Date Time Temp Pulse Resp B/P (MAP) Pulse Ox O2 Delivery O2 Flow Rate FiO2 08/31/19 10:18 Room Air 08/31/19 08:57 74 142/75 08/31/19 07:00 97.8 19 95 97.8 Labs Labs Laboratory Tests Test 08/31/19 02:58 White Blood Count 5.9 x10^3/uL (4.0-11.0) Red Blood Count 4.00 x10^6/uL (3.50-5.40) Hemoglobin 11.8 g/dL (12.0-15.5) Hematocrit 35.5 % (36.0-47.0) Mean Corpuscular Volume 89 fL (79-100) Mean Corpuscular Hemoglobin 30 pg (25-35) Mean Corpuscular Hemoglobin Concent 33 g/dL (31-37) Red Cell Distribution Width 15.7 % (11.5-14.5) Platelet Count 203 x10^3/uL (140-400) Neutrophils (%) (Auto) 68 % (31-73) Lymphocytes (%) (Auto) 22 % (24-48) Monocytes (%) (Auto) 6 % (0-9) Eosinophils (%) (Auto) 4 % (0-3) Basophils (%) (Auto) 0 % (0-3) Neutrophils # (Auto) 4.0 x10^3/uL (1.8-7.7) Lymphocytes # (Auto) 1.3 x10^3/uL (1.0-4.8) Monocytes # (Auto) 0.4 x10^3/uL (0.0-1.1) Eosinophils # (Auto) 0.2 x10^3/uL (0.0-0.7) Basophils # (Auto) 0.0 x10^3/uL (0.0-0.2) Erythrocyte Sedimentation Rate 25 (0-25) Sodium Level 145 mmol/L (136-145) Potassium Level 3.4 mmol/L (3.5-5.1) Chloride Level 104 mmol/L (98-107) Carbon Dioxide Level 33 mmol/L (21-32) Anion Gap 8 (6-14) Blood Urea Nitrogen 12 mg/dL (7-20) Creatinine 0.7 mg/dL (0.6-1.0) Estimated GFR (Cockcroft-Gault) 87.5 Glucose Level 78 mg/dL (70-99) Calcium Level 9.0 mg/dL (8.5-10.1) Laboratory Tests Test 08/31/19 02:58 White Blood Count 5.9 x10^3/uL (4.0-11.0) Red Blood Count 4.00 x10^6/uL (3.50-5.40) Hemoglobin 11.8 g/dL (12.0-15.5) Hematocrit 35.5 % (36.0-47.0) Mean Corpuscular Volume 89 fL (79-100) Mean Corpuscular Hemoglobin 30 pg (25-35) Mean Corpuscular Hemoglobin Concent 33 g/dL (31-37) Red Cell Distribution Width 15.7 % (11.5-14.5) Platelet Count 203 x10^3/uL (140-400) Neutrophils (%) (Auto) 68 % (31-73) Lymphocytes (%) (Auto) 22 % (24-48) Monocytes (%) (Auto) 6 % (0-9) Eosinophils (%) (Auto) 4 % (0-3) Basophils (%) (Auto) 0 % (0-3) Neutrophils # (Auto) 4.0 x10^3/uL (1.8-7.7) Lymphocytes # (Auto) 1.3 x10^3/uL (1.0-4.8) Monocytes # (Auto) 0.4 x10^3/uL (0.0-1.1) Eosinophils # (Auto) 0.2 x10^3/uL (0.0-0.7) Basophils # (Auto) 0.0 x10^3/uL (0.0-0.2) Erythrocyte Sedimentation Rate 25 (0-25) Sodium Level 145 mmol/L (136-145) Potassium Level 3.4 mmol/L (3.5-5.1) Chloride Level 104 mmol/L (98-107) Carbon Dioxide Level 33 mmol/L (21-32) Anion Gap 8 (6-14) Blood Urea Nitrogen 12 mg/dL (7-20) Creatinine 0.7 mg/dL (0.6-1.0) Estimated GFR (Cockcroft-Gault) 87.5 Glucose Level 78 mg/dL (70-99) Calcium Level 9.0 mg/dL (8.5-10.1) VTE Prophylaxis Ordered VTE Prophylaxis Devices: Yes VTE Pharmacological Prophylaxi: Yes Assessment/Plan Assessment/Plan BIlateral LE cellulitis, readmission, recurred after 1 WEEk, FAILED OP AUGMentin Obesity HTN,dyslipidmeia - chronic stable Esr 25 PLAn: VAnc Consult ID this time CAncel wound care- not needed May elevate both legs I have reconciled home meds FULL CODE SERGE CORNELL MD Aug 31, 2019 10:57
[2019-08-31] MEDS: VANCOMYCIN PER PHARMACY MC PRN (13:12)
[2019-08-31 15:06] VITALS: BP 145/72
--- NOTE | 2019-08-31 16:44 | NUR ---
SW following pt for dc planning. Chart reviewed and discussed with RN. Pt lives at home with spouse. Pt is at baseline with ADL's and does not need skilled interventions at this time. Per PT's note, Pt plans to continue OP PT upon dc. SW will be available as needed.
[2019-08-31 19:00] VITALS: BP 131/74
[2019-08-31] MEDS: LACTOBACILLUS RHAMNOSUS GG 1 CAPSULE. PO SCH (20:50)
[2019-08-31] MEDS: ATORVASTATIN CALCIUM 20 MG TABLET PO SCH (20:50)
[2019-08-31 22:57] VITALS: BP 138/74
[2019-09-01 03:00] VITALS: BP 148/72
[2019-09-01 07:00] VITALS: BP 122/70
[2019-09-01] MEDS: buPROPion SR 150 MG TABLET.SA PO SCH ×2 (07:52→20:48)
[2019-09-01] MEDS: LACTOBACILLUS RHAMNOSUS GG 1 CAPSULE. PO SCH ×2 (07:53→20:48)
[2019-09-01] MEDS: MULTIVITAMIN with MINERAL TABLET. PO SCH (07:53)
[2019-09-01] MEDS: OMEGA-3 FATTY ACIDS/FISH OIL 1,000 MG CAPSULE. PO SCH (07:53)
[2019-09-01] MEDS: hydroCHLOROthiazide 25 MG TABLET PO SCH (07:53)
[2019-09-01] MEDS: oxyCODONE/APAP 7.5/325 1 TAB TABLET PO PRN ×3 (07:53→22:33)
[2019-09-01] MEDS: CELECOXIB 100 MG CAPSULE. PO SCH ×2 (07:54→20:48)
[2019-09-01] MEDS: CITALOPRAM 20 MG TABLET. PO SCH (07:54)
[2019-09-01] MEDS: amLODIPine BESYLATE 10 MG TABLET PO SCH (07:54)
[2019-09-01] MEDS ORDERED: POTASSIUM CHLORIDE 20 MEQ TABLET.ER. PO ONE (08:30)
--- NOTE | 2019-09-01 08:55 | PDOC ---
Infectious Disease Note Vital Sign Vital Signs Vital Signs Date Time Temp Pulse Resp B/P (MAP) Pulse Ox O2 Delivery O2 Flow Rate FiO2 09/01/19 07:54 72 122/70 09/01/19 07:53 91 Room Air 09/01/19 07:00 97.8 19 97.8 Objective Assessment Lower ext cellulitis - failed Augmentin Tinea Morbid obesity Plan Plan of Care D/c vanc with high dosing - No fever or Leukocytosis Add Zyvox and fluconazole Elevation would benefit from light compression F/u results anticipate another 1 to 2 days D/w nursing to monitor vitals with zyvox Thank you # [id number] JOE DAVALOS MD Sep 01, 2019 08:55
[2019-09-01] MEDS: LINEZOLID 600 MG TABLET PO SCH ×2 (09:26→20:48)
[2019-09-01] MEDS: FLUCONAZOLE 100 MG TABLET. PO SCH (09:26)
--- NOTE | 2019-09-01 10:07 | PDOC ---
PROGRESS NOTES Chief Complaint Chief Complaint Bilateral LE cellulitis, readmission, recurred after 1 WEEk, FAILED OP AUGMentin Obesity HTN,dyslipidmeia - chronic stable chronic LE edema - on HCTZ Hypokalemia on HCTZ History of Present Illness History of Present Illness legs about the same She keeps them elevated K 3.4 on HCTZ 25 ID has seen, added antifungal and trial of zyvox Insurance will cover her zyvox she verifies with me PLAN: Zyvox added, antifungal Keeplegs elevated Replace K, recheck labs MIght need tos tart some daily KCl supplements (on HCTZ) HArd to put scds or gage hose in red legs FULL CODE Vitals Vitals Vital Signs Date Time Temp Pulse Resp B/P (MAP) Pulse Ox O2 Delivery O2 Flow Rate FiO2 09/01/19 09:27 91 Room Air 09/01/19 07:54 72 122/70 09/01/19 07:00 97.8 19 97.8 Physical Exam General: Alert, Oriented X3, Cooperative, No acute distress Abdomen: Normal bowel sounds, Soft, No tenderness, No hepatosplenomegaly, No masses Skin: Other (legs both LE mildy red, mildly swollen, warm to touch, no open skin lesions, good pulses) Review of Systems Review of Systems neg 14 pt reviewed with her Comment Review of Relevant I have reviewed the following items zana (where applicable) has been applied. Labs Laboratory Tests Test 08/31/19 02:58 White Blood Count 5.9 x10^3/uL (4.0-11.0) Red Blood Count 4.00 x10^6/uL (3.50-5.40) Hemoglobin 11.8 g/dL (12.0-15.5) Hematocrit 35.5 % (36.0-47.0) Mean Corpuscular Volume 89 fL (79-100) Mean Corpuscular Hemoglobin 30 pg (25-35) Mean Corpuscular Hemoglobin Concent 33 g/dL (31-37) Red Cell Distribution Width 15.7 % (11.5-14.5) Platelet Count 203 x10^3/uL (140-400) Neutrophils (%) (Auto) 68 % (31-73) Lymphocytes (%) (Auto) 22 % (24-48) Monocytes (%) (Auto) 6 % (0-9) Eosinophils (%) (Auto) 4 % (0-3) Basophils (%) (Auto) 0 % (0-3) Neutrophils # (Auto) 4.0 x10^3/uL (1.8-7.7) Lymphocytes # (Auto) 1.3 x10^3/uL (1.0-4.8) Monocytes # (Auto) 0.4 x10^3/uL (0.0-1.1) Eosinophils # (Auto) 0.2 x10^3/uL (0.0-0.7) Basophils # (Auto) 0.0 x10^3/uL (0.0-0.2) Erythrocyte Sedimentation Rate 25 (0-25) Sodium Level 145 mmol/L (136-145) Potassium Level 3.4 mmol/L (3.5-5.1) Chloride Level 104 mmol/L (98-107) Carbon Dioxide Level 33 mmol/L (21-32) Anion Gap 8 (6-14) Blood Urea Nitrogen 12 mg/dL (7-20) Creatinine 0.7 mg/dL (0.6-1.0) Estimated GFR (Cockcroft-Gault) 87.5 Glucose Level 78 mg/dL (70-99) Calcium Level 9.0 mg/dL (8.5-10.1) Microbiology 08/31/19 Blood Culture - Preliminary, Resulted NO GROWTH AFTER 1 DAY Medications Current Medications Amlodipine Besylate (Norvasc) 10 mg DAILY PO Last administered on 09/01/19 07:54; Start 08/31/19 at 09:00 Atorvastatin Calcium (Lipitor) 20 mg HS PO Last administered on 08/31/19at 20:50; Start 08/30/19 at 21:00 Bupropion HCl (Wellbutrin Sr) 150 mg BID PO Last administered on 09/01/19 07:52; Start 08/30/19 at 21:00 Celecoxib (CeleBREX) 100 mg BID PO Last administered on 09/01/19 07:54; Start 08/30/19 at 21:00 Hydrochlorothiazide (Hydrodiuril) 25 mg DAILY PO Last administered on 09/01/19 07:53; Start 08/31/19 at 09:00 Oxycodone/ Acetaminophen (Percocet 7.5/ 325) 1 tab PRN Q4HRS PRN PO MODERATE TO SEVERE PAIN Last administered on 09/01/19 07:53; Start 08/30/19 at 19:00 Citalopram Hydrobromide (CeleXA) 40 mg DAILY PO Last administered on 09/01/19 07:54; Start 08/31/19 at 09:00 Multivitamins (Thera M Plus) 1 tab DAILY PO Last administered on 09/01/19 07:53; Start 08/31/19 at 09:00 Fish Oil (Fish Oil) 2,000 mg DAILY PO Last administered on 09/01/19 07:53; Start 08/31/19 at 09:00 Vancomycin HCl (Vanco Per Pharmacy) 1 each PRN DAILY PRN MC SEE COMMENTS Last administered on 08/31/19at 13:12; Start 08/30/19 at 19:15; Stop 09/01/19 at 08:46; Status DC Vancomycin HCl 2 gm/Sodium Chloride 500 ml @ 250 mls/hr 1X ONCE IV Last admi nistered on 08/30/19at 21:00; Start 08/30/19 at 20:30; Stop 08/30/19 at 22:29; Status DC Vancomycin HCl 2 gm/Sodium Chloride 500 ml @ 250 mls/hr Q12H IV Last administered on 08/31/19at 20:50; Start 08/31/19 at 09:00; Stop 09/01/19 at 08:46; Status DC Vancomycin HCl (Vancomycin Trough Level) 1 each 1X ONCE MC ; Start 09/01/19 at 08:30; Stop 09/01/19 at 08:31; Status DC Potassium Chloride (Klor-Con) 40 meq 1X ONCE PO Last administered on 08/31/19at 08:55; Start 08/31/19 at 08:15; Stop 08/31/19 at 08:18; Status DC Ondansetron HCl (Zofran) 4 mg PRN Q6HRS PRN IVP NAUSEA/VOMITING; Start 08/31/19 at 08:15 Acetaminophen (Tylenol) 500 mg PRN Q6HRS PRN PO MILD PAIN / TEMP; Start 08/31/19 at 08:15 Morphine Sulfate (Morphine Sulfate) 2 mg PRN Q2HR PRN IV PAIN; Start 08/31/19 at 08:15 Clonidine HCl (Catapres) 0.1 mg 1X ONCE PO Last administered on 08/31/19at 08:55; Start 08/31/19 at 08:15; Stop 08/31/19 at 08:18; Status DC Clonidine HCl (Catapres) 0.1 mg PRN Q1HR PRN PO HYPERTENSION; Start 08/31/19 at 08:15 Lactobacillus Rhamnosus (Culturelle) 1 cap BID PO Last administered on 09/01/19at 07:53; Start 08/31/19 at 21:00 Potassium Chloride (Klor-Con) 40 meq 1X ONCE PO Last administered on 09/01/19at 09:26; Start 09/01/19 at 08:30; Stop 09/01/19 at 08:34; Status DC Linezolid (Zyvox) 600 mg BID PO Last administered on 09/01/19at 09:26; Start 09/01/19 at 09:00 Fluconazole (Diflucan) 200 mg DAILY PO Last administered on 09/01/19at 09:26; Start 09/01/19 at 09:00 Active Scripts Active Augmentin 875-125 Tablet (Amoxicillin/Potassium Clav) 1 Each Tablet 1 Tab PO BID Celebrex (Celecoxib) 100 Mg Capsule 1 Cap PO BID Percocet 7.5-325 Mg Tablet (Oxycodone/Acetaminophen) 1 Each Tablet 1 Tab PO PRN Q4HRS PRN Reported Ondansetron HCl 4 mg/2 ml Syr (Ondansetron HCl/Pf) 4 Mg/2 Ml Syringe 4 Mg IJ PRN Q6HRS PRN Tylenol (Acetaminophen) 325 Mg Tablet 650 Mg PO PRN Q4HRS PRN Ambien (Zolpidem Tartrate) 5 Mg Tablet 5 Mg PO PRN QHS PRN Multivitamins (Multivitamin) 1 Each Tablet 1 Tab PO DAILY Fish Oil 1,000 Mg Softgel ([place]-3 Fatty Acids/Fish Oil) 1 Each Capsule 2 Each PO DAILY Lipitor (Atorvastatin Calcium) 20 Mg Tablet 20 Mg PO HS Hydrochlorothiazide Tablet (Hydrochlorothiazide) 25 Mg Tablet 25 Mg PO DAILY Escitalopram Oxalate 20 Mg Tablet 1 Tab PO DAILY Wellbutrin Sr (Bupropion Hcl) 150 Mg Tablet.er 1 Tab PO BID Norvasc (Amlodipine Besylate) 10 Mg Tablet 10 Mg PO DAILY Vitals/I & O Vital Sign - Last 24 Hours 08/31/19 08/31/19 08/31/19 08/31/19 10:18 10:53 15:06 17:19 Temp 97.8 97.8 97.8 97.8 Pulse 85 80 Resp 19 19 B/P (MAP) 138/69 (92) 145/72 (96) Pulse Ox 96 96 O2 Delivery Room Air Room Air Room Air Room Air 08/31/19 08/31/19 08/31/19 09/01/19 18:31 19:00 22:57 03:00 Temp 97.7 97.6 97.8 97.7 97.6 97.8 Pulse 72 79 77 Resp 17 17 17 B/P (MAP) 131/74 (93) 138/74 (95) 148/72 (97) Pulse Ox 93 92 91 O2 Delivery Room Air Room Air Room Air Room Air 09/01/19 09/01/19 09/01/19 09/01/19 07:00 07:53 07:54 09:27 Temp 97.8 97.8 Pulse 72 72 Resp 19 B/P (MAP) 122/70 (87) 122/70 Pulse Ox 95 91 91 O2 Delivery Room Air Room Air Room Air Intake and Output 08/31/19 08/31/19 09/01/19 15:00 23:00 07:00 Intake Total 600 ml 300 ml 2353 ml Balance 600 ml 300 ml 2353 ml SERGE CORNELL MD Sep 01, 2019 10:07
[2019-09-01 10:56] VITALS: BP 138/74
[2019-09-01 12:09] LABS: BASO % 1 % (0-3); EOS # 0.2 x10^3/uL (0.0-0.7); EOS % 3 % (0-3); HEMATOCRIT 35.6 % (36.0-47.0); HEMOGLOBIN 11.8 g/dL (12.0-15.5); LYMPH # 0.8 x10^3/uL (1.0-4.8); LYMPH % 15 % (24-48); MEAN CORPUSCULAR HEMOGLOBIN 29 pg (25-35); MEAN CORPUSCULAR HGB CONC 33 g/dL (31-37); MEAN CORPUSCULAR VOLUME 89 fL (79-100); MONO # 0.4 x10^3/uL (0.0-1.1); MONO % 8 % (0-9); NEUT % 74 % (31-73); PLATELET COUNT 199 x10^3/uL (140-400); RED CELL DISTRIBUTION WIDTH 15.7 % (11.5-14.5); WHITE BLOOD COUNT 5.4 x10^3/uL (4.0-11.0)
--- NOTE | 2019-09-01 13:09 | CONS ---
DATE OF CONSULTATION: 09/01/2019 INFECTIOUS DISEASE CONSULTATION LOCATION: The patient is in room #558. REQUESTING PHYSICIAN: Brittany Curtis MD REASON FOR CONSULTATION: Recurring cellulitis. HISTORY OF PRESENT ILLNESS: The patient is a pleasant 54-year-old female, who recently underwent a right shoulder arthroscopic rotator cuff repair on 08/06. She then presented to [facility] on the with developing lower extremity swelling, redness, warmth, and tenderness over the course of the week. She denied any known trauma. She had been admitted to the hospital and then discharged home on Augmentin. She was improving prior to discharge and despite taking the Augmentin, the legs became more swollen, more tender when she got home, more red, and she returned back to [facility]. She did not have any fever, chills, or sweats. She had no sinus issues. No sore throat, cough, or chest pain; denied any nausea, vomiting, or diarrhea. No dysuria, frequency, or urgency. She had a bowel movement on the day of her admission, but has not had one since then. She does state that currently her lower extremities are improving since admission. PAST MEDICAL HISTORY: Positive for depression, hypercholesterolemia, hypertension, and morbid obesity. PAST SURGICAL HISTORY: Positive for the above-mentioned rotator cuff repair, tonsillectomy, tubal ligation, right hip replacement, and right foot screw placement. REVIEW OF SYSTEMS: Otherwise negative except for what is mentioned above. ALLERGIES: No known drug allergies. SOCIAL HISTORY: No tobacco or alcohol. FAMILY HISTORY: Noncontributory. MEDICATIONS: Current medications include vancomycin 2 g q.12, Norvasc, Lipitor, Wellbutrin, Celexa, Celebrex, Catapres, hydrochlorothiazide, lactobacillus, multivitamins, and potassium. PHYSICAL EXAMINATION: VITAL SIGNS: She has been afebrile, temperature 97.8, pulse 72, respirations 19, blood pressure 122/70, and satting 91% on room air. CONSTITUTIONAL: She is pleasant. She is cooperative. She is in no acute distress. HEENT: Pupils are equal and reactive with normal conjunctivae. Oral cavity: Pharynx is clear. NECK: Supple. Good range of motion. LUNGS: Clear to auscultation bilaterally. HEART: S1, S2. ABDOMEN: Morbidly obese, soft, nontender, and nondistended with positive bowel sounds. EXTREMITIES: Without clubbing or cyanosis. Her right upper extremity is immobilized. Bilateral lower extremities have erythema and warmth from just about her foot to the mid upper third. She has a little tracking along the mid aspect of her thigh. She also has some tenia on her feet bilaterally. SKIN: Otherwise warm without signs of rash. NEUROLOGIC: She is nonfocal. PSYCHIATRIC: Affect is pleasant. LABORATORY VALUES: White count is 5.9, hemoglobin is 11.8, platelets are 203, neutrophils 68, lymphs are 22, sed rate of 25, creatinine is 0.7, and blood glucose is 78. IMAGING: Lower extremity ultrasounds on the were negative. IMPRESSION: 1. Lower extremity cellulitis, failed Augmentin. 2. Tinea. 3. Morbid obesity. RECOMMENDATIONS: At this time, we will discontinue vancomycin with a high dose since she has no fever or leukocytosis. We will add Zyvox and monitor her response. We will also add fluconazole. We will continue elevation. She would benefit from light compression and follow up on the results. I anticipate another 1-2 days prior to discharge. This was discussed with Nursing and to monitor whilst on Zyvox. Thank you for allowing me to participate in the patient's care. Should you have any questions, please do not hesitate to contact me. JOE DAVALOS MD DR: RICKI/linda JOB#: [id number] / [id number]
[2019-09-01 14:47] VITALS: BP 135/66
[2019-09-01 19:00] VITALS: BP 156/83
[2019-09-01] MEDS: ATORVASTATIN CALCIUM 20 MG TABLET PO SCH (20:48)
[2019-09-01 23:00] VITALS: BP 125/64
[2019-09-02 03:00] VITALS: BP 104/56
[2019-09-02] MEDS: oxyCODONE/APAP 7.5/325 1 TAB TABLET PO PRN ×4 (05:53→23:12)
[2019-09-02 07:00] VITALS: BP 113/63
[2019-09-02] MEDS: CITALOPRAM 20 MG TABLET. PO SCH (09:40)
[2019-09-02] MEDS: buPROPion SR 150 MG TABLET.SA PO SCH ×2 (09:40→21:10)
[2019-09-02] MEDS: OMEGA-3 FATTY ACIDS/FISH OIL 1,000 MG CAPSULE. PO SCH (09:41)
[2019-09-02] MEDS: hydroCHLOROthiazide 25 MG TABLET PO SCH (09:41)
[2019-09-02] MEDS: LINEZOLID 600 MG TABLET PO SCH ×2 (09:41→21:10)
[2019-09-02] MEDS: MULTIVITAMIN with MINERAL TABLET. PO SCH (09:41)
[2019-09-02] MEDS: amLODIPine BESYLATE 10 MG TABLET PO SCH (09:42)
[2019-09-02] MEDS: LACTOBACILLUS RHAMNOSUS GG 1 CAPSULE. PO SCH ×2 (09:42→21:10)
[2019-09-02] MEDS: FLUCONAZOLE 100 MG TABLET. PO SCH (09:42)
[2019-09-02] MEDS: CELECOXIB 100 MG CAPSULE. PO SCH ×2 (09:42→21:10)
[2019-09-02] MEDS ORDERED: FUROSEMIDE 40 MG/4 ML VIAL. IVP ONE (10:15)
--- NOTE | 2019-09-02 10:18 | PDOC ---
PROGRESS NOTES Chief Complaint Chief Complaint Bilateral LE cellulitis, readmission, recurred after 1 WEEk, FAILED OP AUGMentin Obesity HTN,dyslipidmeia - chronic stable chronic LE edema - on HCTZ Hypokalemia on HCTZ History of Present Illness History of Present Illness redness of legs better BUt swelling about the same, causing her leg pains K 4,.4 after replacement Denied inpt statuss, peer to peer with DR Joy PLAN: LAsix 40 IVP now then qdaily Dc HCTZ for now while on lasix COnt PO zyvox, antifungal IV and vanc per ID So far BC neg She is keeping legs elevated NOs leep - ambien qhs tonight Vitals Vitals Vital Signs Date Time Temp Pulse Resp B/P (MAP) Pulse Ox O2 Delivery O2 Flow Rate FiO2 09/02/19 09:42 75 113/63 09/02/19 08:00 Room Air 09/02/19 07:00 97.9 16 93 97.9 Physical Exam General: Alert, Oriented X3, Cooperative, No acute distress Heart: Regular rate, Normal S1, Normal S2 Lungs: Clear Abdomen: Normal bowel sounds, Soft, No tenderness, No hepatosplenomegaly, No masses Skin: Other (legs both LE mildy red, mildly swollen, warm to touch, no open skin lesions, good pulses) Labs LABS Laboratory Tests Test 09/01/19 11:50 White Blood Count 5.4 x10^3/uL (4.0-11.0) Red Blood Count 4.00 x10^6/uL (3.50-5.40) Hemoglobin 11.8 g/dL (12.0-15.5) Hematocrit 35.6 % (36.0-47.0) Mean Corpuscular Volume 89 fL (79-100) Mean Corpuscular Hemoglobin 29 pg (25-35) Mean Corpuscular Hemoglobin Concent 33 g/dL (31-37) Red Cell Distribution Width 15.7 % (11.5-14.5) Platelet Count 199 x10^3/uL (140-400) Neutrophils (%) (Auto) 74 % (31-73) Lymphocytes (%) (Auto) 15 % (24-48) Monocytes (%) (Auto) 8 % (0-9) Eosinophils (%) (Auto) 3 % (0-3) Basophils (%) (Auto) 1 % (0-3) Neutrophils # (Auto) 4.0 x10^3/uL (1.8-7.7) Lymphocytes # (Auto) 0.8 x10^3/uL (1.0-4.8) Monocytes # (Auto) 0.4 x10^3/uL (0.0-1.1) Eosinophils # (Auto) 0.2 x10^3/uL (0.0-0.7) Basophils # (Auto) 0.0 x10^3/uL (0.0-0.2) Potassium Level 4.4 mmol/L (3.5-5.1) Review of Systems Review of Systems insomnia, leg swollen, all else 14 pt neg Comment Review of Relevant I have reviewed the following items zana (where applicable) has been applied. Labs Laboratory Tests Test 09/01/19 11:50 White Blood Count 5.4 x10^3/uL (4.0-11.0) Red Blood Count 4.00 x10^6/uL (3.50-5.40) Hemoglobin 11.8 g/dL (12.0-15.5) Hematocrit 35.6 % (36.0-47.0) Mean Corpuscular Volume 89 fL (79-100) Mean Corpuscular Hemoglobin 29 pg (25-35) Mean Corpuscular Hemoglobin Concent 33 g/dL (31-37) Red Cell Distribution Width 15.7 % (11.5-14.5) Platelet Count 199 x10^3/uL (140-400) Neutrophils (%) (Auto) 74 % (31-73) Lymphocytes (%) (Auto) 15 % (24-48) Monocytes (%) (Auto) 8 % (0-9) Eosinophils (%) (Auto) 3 % (0-3) Basophils (%) (Auto) 1 % (0-3) Neutrophils # (Auto) 4.0 x10^3/uL (1.8-7.7) Lymphocytes # (Auto) 0.8 x10^3/uL (1.0-4.8) Monocytes # (Auto) 0.4 x10^3/uL (0.0-1.1) Eosinophils # (Auto) 0.2 x10^3/uL (0.0-0.7) Basophils # (Auto) 0.0 x10^3/uL (0.0-0.2) Potassium Level 4.4 mmol/L (3.5-5.1) Laboratory Tests Test 09/01/19 11:50 White Blood Count 5.4 x10^3/uL (4.0-11.0) Red Blood Count 4.00 x10^6/uL (3.50-5.40) Hemoglobin 11.8 g/dL (12.0-15.5) Hematocrit 35.6 % (36.0-47.0) Mean Corpuscular Volume 89 fL (79-100) Mean Corpuscular Hemoglobin 29 pg (25-35) Mean Corpuscular Hemoglobin Concent 33 g/dL (31-37) Red Cell Distribution Width 15.7 % (11.5-14.5) Platelet Count 199 x10^3/uL (140-400) Neutrophils (%) (Auto) 74 % (31-73) Lymphocytes (%) (Auto) 15 % (24-48) Monocytes (%) (Auto) 8 % (0-9) Eosinophils (%) (Auto) 3 % (0-3) Basophils (%) (Auto) 1 % (0-3) Neutrophils # (Auto) 4.0 x10^3/uL (1.8-7.7) Lymphocytes # (Auto) 0.8 x10^3/uL (1.0-4.8) Monocytes # (Auto) 0.4 x10^3/uL (0.0-1.1) Eosinophils # (Auto) 0.2 x10^3/uL (0.0-0.7) Basophils # (Auto) 0.0 x10^3/uL (0.0-0.2) Potassium Level 4.4 mmol/L (3.5-5.1) Microbiology 08/31/19 Blood Culture - Preliminary, Resulted NO GROWTH AFTER 2 DAYS Medications Current Medications Amlodipine Besylate (Norvasc) 10 mg DAILY PO Last administered on 09/02/19at 09:42; Start 08/31/19 at 09:00 Atorvastatin Calcium (Lipitor) 20 mg HS PO Last administered on 09/01/19at 20:48; Start 08/30/19 at 21:00 Bupropion HCl (Wellbutrin Sr) 150 mg BID PO Last administered on 09/02/19 09:40; Start 08/30/19 at 21:00 Celecoxib (CeleBREX) 100 mg BID PO Last administered on 09/02/19 09:42; Start 08/30/19 at 21:00 Hydrochlorothiazide (Hydrodiuril) 25 mg DAILY PO Last administered on 09/02/19 09:41; Start 08/31/19 at 09:00 Oxycodone/ Acetaminophen (Percocet 7.5/ 325) 1 tab PRN Q4HRS PRN PO MODERATE TO SEVERE PAIN Last administered on 09/02/19 05:53; Start 08/30/19 at 19:00 Citalopram Hydrobromide (CeleXA) 40 mg DAILY PO Last administered on 09/02/19 09:40; Start 08/31/19 at 09:00 Multivitamins (Thera M Plus) 1 tab DAILY PO Last administered on 09/02/19 09:41; Start 08/31/19 at 09:00 Fish Oil (Fish Oil) 2,000 mg DAILY PO Last administered on 09/02/19 09:41; Start 08/31/19 at 09:00 Vancomycin HCl (Vanco Per Pharmacy) 1 each PRN DAILY PRN MC SEE COMMENTS Last administered on 08/31/19 13:12; Start 08/30/19 at 19:15; Stop 09/01/19 at 08:46; Status DC Vancomycin HCl 2 gm/Sodium Chloride 500 ml @ 250 mls/hr 1X ONCE IV Last administered on 08/30/19 21:00; Start 08/30/19 at 20:30; Stop 08/30/19 at 22:29; Status DC Vancomycin HCl 2 gm/Sodium Chloride 500 ml @ 250 mls/hr Q12H IV Last administered on 08/31/19 20:50; Start 08/31/19 at 09:00; Stop 09/01/19 at 08:46; Status DC Vancomycin HCl (Vancomycin Trough Level) 1 each 1X ONCE MC ; Start 09/01/19 at 08:30; Stop 09/01/19 at 08:31; Status DC Potassium Chloride (Klor-Con) 40 meq 1X ONCE PO Last administered on 08/31/19 08:55; Start 08/31/19 at 08:15; Stop 08/31/19 at 08:18; Status DC Ondansetron HCl (Zofran) 4 mg PRN Q6HRS PRN IVP NAUSEA/VOMITING; Start 08/31/19 at 08:15 Acetaminophen (Tylenol) 500 mg PRN Q6HRS PRN PO MILD PAIN / TEMP; Start 08/31/19 at 08:15 Morphine Sulfate (Morphine Sulfate) 2 mg PRN Q2HR PRN IV PAIN; Start 08/31/19 at 08:15 Clonidine HCl (Catapres) 0.1 mg 1X ONCE PO Last administered on 08/31/19at 08:55; Start 08/31/19 at 08:15; Stop 08/31/19 at 08:18; Status DC Clonidine HCl (Catapres) 0.1 mg PRN Q1HR PRN PO HYPERTENSION; Start 08/31/19 at 08:15 Lactobacillus Rhamnosus (Culturelle) 1 cap BID PO Last administered on 09/02/19at 09:42; Start 08/31/19 at 21:00 Potassium Chloride (Klor-Con) 40 meq 1X ONCE PO Last administered on 09/01/19at 09:26; Start 09/01/19 at 08:30; Stop 09/01/19 at 08:34; Status DC Linezolid (Zyvox) 600 mg BID PO Last administered on 09/02/19at 09:41; Start 09/01/19 at 09:00 Fluconazole (Diflucan) 200 mg DAILY PO Last administered on 09/02/19at 09:42; Start 09/01/19 at 09:00 Active Scripts Active Augmentin 875-125 Tablet (Amoxicillin/Potassium Clav) 1 Each Tablet 1 Tab PO BID Celebrex (Celecoxib) 100 Mg Capsule 1 Cap PO BID Percocet 7.5-325 Mg Tablet (Oxycodone/Acetaminophen) 1 Each Tablet 1 Tab PO PRN Q4HRS PRN Reported Ondansetron HCl 4 mg/2 ml Syr (Ondansetron HCl/Pf) 4 Mg/2 Ml Syringe 4 Mg IJ PRN Q6HRS PRN Tylenol (Acetaminophen) 325 Mg Tablet 650 Mg PO PRN Q4HRS PRN Ambien (Zolpidem Tartrate) 5 Mg Tablet 5 Mg PO PRN QHS PRN Multivitamins (Multivitamin) 1 Each Tablet 1 Tab PO DAILY Fish Oil 1,000 Mg Softgel ([place]-3 Fatty Acids/Fish Oil) 1 Each Capsule 2 Each PO DAILY Lipitor (Atorvastatin Calcium) 20 Mg Tablet 20 Mg PO HS Hydrochlorothiazide Tablet (Hydrochlorothiazide) 25 Mg Tablet 25 Mg PO DAILY Escitalopram Oxalate 20 Mg Tablet 1 Tab PO DAILY Wellbutrin Sr (Bupropion Hcl) 150 Mg Tablet.er 1 Tab PO BID Norvasc (Amlodipine Besylate) 10 Mg Tablet 10 Mg PO DAILY Vitals/I & O Vital Sign - Last 24 Hours 09/01/19 09/01/19 09/01/19 09/01/19 10:56 14:47 15:33 19:00 Temp 97.8 97.8 98.9 97.8 97.8 98.9 Pulse 70 85 86 Resp 19 19 20 B/P (MAP) 138/74 (95) 135/66 (89) 156/83 (107) Pulse Ox 96 95 95 93 O2 Delivery Room Air Room Air Room Air Room Air 09/01/19 09/01/19 09/01/19 09/01/19 20:00 22:33 23:00 23:33 Temp 98.7 98.7 Pulse 80 Resp 16 B/P (MAP) 125/64 (84) Pulse Ox 93 95 95 O2 Delivery Room Air Room Air Room Air Room Air 09/02/19 09/02/19 09/02/19 09/02/19 03:00 05:53 07:00 08:00 Temp 98.8 97.9 98.8 97.9 Pulse 78 75 Resp 16 16 B/P (MAP) 104/56 (72) 113/63 (80) Pulse Ox 90 90 93 O2 Delivery Room Air Room Air Room Air Room Air 09/02/19 09:42 Pulse 75 B/P (MAP) 113/63 Intake and Output 09/01/19 09/01/19 09/02/19 15:00 23:00 07:00 Intake Total 600 ml 800 ml 700 ml Balance 600 ml 800 ml 700 ml SERGE CORNELL MD Sep 02, 2019 10:18
--- NOTE | 2019-09-02 10:18 | PDOC ---
Infectious Disease Note Subjective Subjective Better with less pain Tolerating abx No F/C/S/n/V/d/SOA/rash ROS ROS o/w neg Vital Sign Vital Signs Vital Signs Date Time Temp Pulse Resp B/P (MAP) Pulse Ox O2 Delivery O2 Flow Rate FiO2 09/02/19 09:42 75 113/63 09/02/19 08:00 Room Air 09/02/19 07:00 97.9 16 93 97.9 Physical Exam PHYSICAL EXAM CONSTITUTIONAL: She is pleasant. She is cooperative. She is in no acute distress. HEENT: Pupils are equal and reactive with normal conjunctivae. Oral cavity: Pharynx is clear. NECK: Supple. Good range of motion. LUNGS: Clear to auscultation bilaterally. HEART: S1, S2. ABDOMEN: Morbidly obese, soft, nontender, and nondistended with positive bowel sounds. EXTREMITIES: Without clubbing or cyanosis. Her right upper extremity is immobilized. Bilateral lower extremities have erythema and warmth from just about her foot to the mid upper third - improving She has a little tracking along the mid aspect of her thigh. She also has some tinea on her feet bilaterally. SKIN: Otherwise warm without signs of rash. NEUROLOGIC: She is nonfocal. PSYCHIATRIC: Affect is pleasant. Labs Lab Laboratory Tests Test 09/01/19 11:50 White Blood Count 5.4 x10^3/uL (4.0-11.0) Red Blood Count 4.00 x10^6/uL (3.50-5.40) Hemoglobin 11.8 g/dL (12.0-15.5) Hematocrit 35.6 % (36.0-47.0) Mean Corpuscular Volume 89 fL (79-100) Mean Corpuscular Hemoglobin 29 pg (25-35) Mean Corpuscular Hemoglobin Concent 33 g/dL (31-37) Red Cell Distribution Width 15.7 % (11.5-14.5) Platelet Count 199 x10^3/uL (140-400) Neutrophils (%) (Auto) 74 % (31-73) Lymphocytes (%) (Auto) 15 % (24-48) Monocytes (%) (Auto) 8 % (0-9) Eosinophils (%) (Auto) 3 % (0-3) Basophils (%) (Auto) 1 % (0-3) Neutrophils # (Auto) 4.0 x10^3/uL (1.8-7.7) Lymphocytes # (Auto) 0.8 x10^3/uL (1.0-4.8) Monocytes # (Auto) 0.4 x10^3/uL (0.0-1.1) Eosinophils # (Auto) 0.2 x10^3/uL (0.0-0.7) Basophils # (Auto) 0.0 x10^3/uL (0.0-0.2) Potassium Level 4.4 mmol/L (3.5-5.1) Micro Microbiology 08/31/19 Blood Culture - Preliminary, Resulted NO GROWTH AFTER 2 DAYS Objective Assessment Lower ext cellulitis - failed Augmentin Tinea Morbid obesity Plan Plan of Care Lasix today per Primary Cont Zyvox and fluconazole Elevation would benefit from light compression F/u results anticipate another day D/w nursing to monitor vitals with zyvox JOE DAVALOS MD Sep 02, 2019 10:18
[2019-09-02] MEDS ORDERED: ZOLPIDEM 5 MG TABLET. PO PRN (10:30)
[2019-09-02 11:00] VITALS: BP 185/92
[2019-09-02 15:00] VITALS: BP 143/64
[2019-09-02 19:00] VITALS: BP 134/63
[2019-09-02] MEDS: ATORVASTATIN CALCIUM 20 MG TABLET PO SCH (21:10)
[2019-09-02 23:00] VITALS: BP 121/58
[2019-09-03 07:00] VITALS: BP 119/70
[2019-09-03] MEDS: LACTOBACILLUS RHAMNOSUS GG 1 CAPSULE. PO SCH (08:18)
[2019-09-03] MEDS: OMEGA-3 FATTY ACIDS/FISH OIL 1,000 MG CAPSULE. PO SCH (08:19)
[2019-09-03] MEDS: MULTIVITAMIN with MINERAL TABLET. PO SCH (08:19)
[2019-09-03] MEDS: CITALOPRAM 20 MG TABLET. PO SCH (08:19)
[2019-09-03] MEDS: amLODIPine BESYLATE 10 MG TABLET PO SCH (08:19)
[2019-09-03] MEDS: LINEZOLID 600 MG TABLET PO SCH (08:19)
[2019-09-03] MEDS: buPROPion SR 150 MG TABLET.SA PO SCH (08:19)
[2019-09-03] MEDS: CELECOXIB 100 MG CAPSULE. PO SCH (08:19)
[2019-09-03] MEDS: FLUCONAZOLE 100 MG TABLET. PO SCH (08:19)
--- NOTE | 2019-09-03 08:23 | NUR ---
Patients peripheral IV infiltrated this morning, patient has been stuck several times while in the Hospital. Patients IV Lasix was non-administered due to patient not wanting to be stuck again with the possibility of going home, she would also rather have PO Lasix than IV. Will let physician aware.
--- NOTE | 2019-09-03 08:32 | PDOC ---
Infectious Disease Note Subjective Subjective Better with less pain Tolerating abx No F/C/S/n/V/d/SOA/rash Vital Sign Vital Signs Vital Signs Date Time Temp Pulse Resp B/P (MAP) Pulse Ox O2 Delivery O2 Flow Rate FiO2 09/03/19 08:19 79 119/70 09/03/19 07:00 97.9 18 98 Room Air 97.9 Physical Exam PHYSICAL EXAM CONSTITUTIONAL: She is pleasant. She is cooperative. She is in no acute distress. HEENT: Pupils are equal and reactive with normal conjunctivae. Oral cavity: Pharynx is clear. NECK: Supple. Good range of motion. LUNGS: Clear to auscultation bilaterally. HEART: S1, S2. ABDOMEN: Morbidly obese, soft, nontender, and nondistended with positive bowel sounds. EXTREMITIES: Without clubbing or cyanosis. Her right upper extremity is immobilized. Bilateral lower extremities have erythema and warmth from just about her foot to the mid upper third - improving still. Much less edema She has a little tracking along the mid aspect of her thigh. She also has some tinea on her feet bilaterally. SKIN: Otherwise warm without signs of rash. NEUROLOGIC: She is nonfocal. PSYCHIATRIC: Affect is pleasant. Labs Micro Microbiology 08/31/19 Blood Culture - Preliminary, Resulted NO GROWTH AFTER 2 DAYS Objective Assessment Lower ext cellulitis - failed Augmentin Tinea Morbid obesity Plan Plan of Fpc on Zyvox and fluconazole for 7 days Elevation would benefit from light compression Can F/u in ID office in week D/w nursing JOE DAVALOS MD Sep 03, 2019 08:32
[2019-09-03] MEDS ORDERED: FUROSEMIDE 20 MG/2 ML VIAL. IVP SCH (09:00)
--- NOTE | 2019-09-03 09:54 | PDOC ---
PROGRESS NOTES Chief Complaint Chief Complaint Bilateral LE cellulitis, readmission, recurred after 1 WEEk, FAILED OP AUGMentin Obesity HTN,dyslipidmeia - chronic stable chronic LE edema - on HCTZ Hypokalemia on HCTZ 29 min pt exam, chart review, > 50% of time spent with exam, chart review, pt care coordination History of Present Illness History of Present Illness redness of legs better BUt swelling about the same, causing her leg pains K 4,.4 after replacement Denied inpt statuss, peer to peer with DR Joy PLAN: LAsix 40 IVP now then qdaily Dc HCTZ for now while on lasix COnt PO zyvox, antifungal IV and vanc per ID So far BC neg She is keeping legs elevated NOs leep - ambien qhs tonight Vitals Vitals Vital Signs Date Time Temp Pulse Resp B/P (MAP) Pulse Ox O2 Delivery O2 Flow Rate FiO2 09/03/19 08:19 79 119/70 09/03/19 08:05 Room Air 09/03/19 07:00 97.9 18 98 97.9 Physical Exam Physical Exam CONSTITUTIONAL: She is pleasant. She is cooperative. She is in no acute distress. HEENT: Pupils are equal and reactive with normal conjunctivae. Oral cavity: Pharynx is clear. NECK: Supple. Good range of motion. LUNGS: Clear to auscultation bilaterally. HEART: S1, S2. ABDOMEN: Morbidly obese, soft, nontender, and nondistended with positive bowel sounds. EXTREMITIES: Without clubbing or cyanosis. Her right upper extremity is immobilized. Bilateral lower extremities have erythema and warmth from just about her foot to the mid upper third - improving still. Much less edema She has a little tracking along the mid aspect of her thigh. She also has some tinea on her feet bilaterally. SKIN: Otherwise warm without signs of rash. NEUROLOGIC: She is nonfocal. PSYCHIATRIC: Affect is pleasant. General: Alert, Oriented X3, Cooperative, No acute distress Heart: Regular rate, Normal S1, Normal S2 Lungs: Clear Abdomen: Normal bowel sounds, Soft, No tenderness, No hepatosplenomegaly, No masses Extremities: No cyanosis Skin: Other (legs both LE mildy red, mildly swollen, warm to touch, no open skin lesions, good pulses) Comment Review of Relevant I have reviewed the following items zana (where applicable) has been applied. Labs Laboratory Tests Test 09/01/19 11:50 White Blood Count 5.4 x10^3/uL (4.0-11.0) Red Blood Count 4.00 x10^6/uL (3.50-5.40) Hemoglobin 11.8 g/dL (12.0-15.5) Hematocrit 35.6 % (36.0-47.0) Mean Corpuscular Volume 89 fL (79-100) Mean Corpuscular Hemoglobin 29 pg (25-35) Mean Corpuscular Hemoglobin Concent 33 g/dL (31-37) Red Cell Distribution Width 15.7 % (11.5-14.5) Platelet Count 199 x10^3/uL (140-400) Neutrophils (%) (Auto) 74 % (31-73) Lymphocytes (%) (Auto) 15 % (24-48) Monocytes (%) (Auto) 8 % (0-9) Eosinophils (%) (Auto) 3 % (0-3) Basophils (%) (Auto) 1 % (0-3) Neutrophils # (Auto) 4.0 x10^3/uL (1.8-7.7) Lymphocytes # (Auto) 0.8 x10^3/uL (1.0-4.8) Monocytes # (Auto) 0.4 x10^3/uL (0.0-1.1) Eosinophils # (Auto) 0.2 x10^3/uL (0.0-0.7) Basophils # (Auto) 0.0 x10^3/uL (0.0-0.2) Potassium Level 4.4 mmol/L (3.5-5.1) Microbiology 08/31/19 Blood Culture - Preliminary, Resulted NO GROWTH AFTER 3 DAYS Medications Current Medications Amlodipine Besylate (Norvasc) 10 mg DAILY PO Last administered on 09/03/19at 08:19; Start 08/31/19 at 09:00 Atorvastatin Calcium (Lipitor) 20 mg HS PO Last administered on 09/02/19at 21:10; Start 08/30/19 at 21:00 Bupropion HCl (Wellbutrin Sr) 150 mg BID PO Last administered on 09/03/19at 08:19; Start 08/30/19 at 21:00 Celecoxib (CeleBREX) 100 mg BID PO Last administered on 09/03/19 08:19; Start 08/30/19 at 21:00 Hydrochlorothiazide (Hydrodiuril) 25 mg DAILY PO Last administered on 09/02/19 09:41; Start 08/31/19 at 09:00; Stop 09/02/19 at 10:16; Status DC Oxycodone/ Acetaminophen (Percocet 7.5/ 325) 1 tab PRN Q4HRS PRN PO MODERATE TO SEVERE PAIN Last administered on 09/02/19 23:12; Start 08/30/19 at 19:00 Citalopram Hydrobromide (CeleXA) 40 mg DAILY PO Last administered on 09/03/19 08:19; Start 08/31/19 at 09:00 Multivitamins (Thera M Plus) 1 tab DAILY PO Last administered on 09/03/19 08:19; Start 08/31/19 at 09:00 Fish Oil (Fish Oil) 2,000 mg DAILY PO Last administered on 09/03/19 08:19; Start 08/31/19 at 09:00 Vancomycin HCl (Vanco Per Pharmacy) 1 each PRN DAILY PRN MC SEE COMMENTS Last administered on 08/31/19at 13:12; Start 08/30/19 at 19:15; Stop 09/01/19 at 08:46; Status DC Vancomycin HCl 2 gm/Sodium Chloride 500 ml @ 250 mls/hr 1X ONCE IV Last administered on 08/30/19 21:00; Start 08/30/19 at 20:30; Stop 08/30/19 at 22:29; Status DC Vancomycin HCl 2 gm/Sodium Chloride 500 ml @ 250 mls/hr Q12H IV Last administered on 08/31/19at 20:50; Start 08/31/19 at 09:00; Stop 09/01/19 at 08:46; Status DC Vancomycin HCl (Vancomycin Trough Level) 1 each 1X ONCE MC ; Start 09/01/19 at 08:30; Stop 09/01/19 at 08:31; Status DC Potassium Chloride (Klor-Con) 40 meq 1X ONCE PO Last administered on 08/31/19 08:55; Start 08/31/19 at 08:15; Stop 08/31/19 at 08:18; Status DC Ondansetron HCl (Zofran) 4 mg PRN Q6HRS PRN IVP NAUSEA/VOMITING; Start 08/31/19 at 08:15 Acetaminophen (Tylenol) 500 mg PRN Q6HRS PRN PO MILD PAIN / TEMP; Start 08/31/19 at 08:15 Morphine Sulfate (Morphine Sulfate) 2 mg PRN Q2HR PRN IV PAIN; Start 08/31/19 at 08:15 Clonidine HCl (Catapres) 0.1 mg 1X ONCE PO Last administered on 08/31/19at 08:55; Start 08/31/19 at 08:15; Stop 08/31/19 at 08:18; Status DC Clonidine HCl (Catapres) 0.1 mg PRN Q1HR PRN PO HYPERTENSION; Start 08/31/19 at 08:15 Lactobacillus Rhamnosus (Culturelle) 1 cap BID PO Last administered on 09/03/19at 08:18; Start 08/31/19 at 21:00 Potassium Chloride (Klor-Con) 40 meq 1X ONCE PO Last administered on 09/01/19at 09:26; Start 09/01/19 at 08:30; Stop 09/01/19 at 08:34; Status DC Linezolid (Zyvox) 600 mg BID PO Last administered on 09/03/19at 08:19; Start 09/01/19 at 09:00 Fluconazole (Diflucan) 200 mg DAILY PO Last administered on 09/03/19at 08:19; Start 09/01/19 at 09:00 Furosemide (Lasix) 40 mg 1X ONCE IVP Last administered on 09/02/19at 11:35; Start 09/02/19 at 10:15; Stop 09/02/19 at 10:23; Status DC Furosemide (Lasix) 20 mg DAILY IVP ; Start 09/03/19 at 09:00; Stop 09/03/19 at 09:03; Status DC Zolpidem Tartrate (Ambien) 5 mg PRN QHS PRN PO INSOMNIA Last administered on 09/02/19at 23:12; Start 09/02/19 at 10:30 Hydrochlorothiazide (Hydrodiuril) 25 mg DAILY PO ; Start 09/03/19 at 10:00 Active Scripts Active Augmentin 875-125 Tablet (Amoxicillin/Potassium Clav) 1 Each Tablet 1 Tab PO BID Celebrex (Celecoxib) 100 Mg Capsule 1 Cap PO BID Percocet 7.5-325 Mg Tablet (Oxycodone/Acetaminophen) 1 Each Tablet 1 Tab PO PRN Q4HRS PRN Reported Ondansetron HCl 4 mg/2 ml Syr (Ondansetron HCl/Pf) 4 Mg/2 Ml Syringe 4 Mg IJ PRN Q6HRS PRN Tylenol (Acetaminophen) 325 Mg Tablet 650 Mg PO PRN Q4HRS PRN Ambien (Zolpidem Tartrate) 5 Mg Tablet 5 Mg PO PRN QHS PRN Multivitamins (Multivitamin) 1 Each Tablet 1 Tab PO DAILY Fish Oil 1,000 Mg Softgel ([place]-3 Fatty Acids/Fish Oil) 1 Each Capsule 2 Each PO DAILY Lipitor (Atorvastatin Calcium) 20 Mg Tablet 20 Mg PO HS Hydrochlorothiazide Tablet (Hydrochlorothiazide) 25 Mg Tablet 25 Mg PO DAILY Escitalopram Oxalate 20 Mg Tablet 1 Tab PO DAILY Wellbutrin Sr (Bupropion Hcl) 150 Mg Tablet.er 1 Tab PO BID Norvasc (Amlodipine Besylate) 10 Mg Tablet 10 Mg PO DAILY Vitals/I & O Vital Sign - Last 24 Hours 09/02/19 09/02/19 09/02/19 09/02/19 11:00 11:34 12:34 15:00 Temp 98.4 98.0 98.4 98.0 Pulse 83 79 Resp 16 20 2 16 B/P (MAP) 185/92 (123) 143/64 (90) Pulse Ox 93 93 93 92 O2 Delivery Room Air Room Air Room Air Room Air 09/02/19 09/02/19 09/02/19 09/02/19 18:35 19:00 19:35 20:00 Temp 97.9 97.9 Pulse 78 Resp 20 18 19 B/P (MAP) 134/63 (86) Pulse Ox 92 94 93 O2 Delivery Room Air Room Air Room Air Room Air 09/02/19 09/02/19 09/03/19 09/03/19 23:00 23:12 00:12 03:00 Temp 98.0 98.0 Pulse 76 Resp 18 B/P (MAP) 121/58 (79) Pulse Ox 94 94 O2 Delivery Room Air Room Air Room Air Room Air 09/03/19 09/03/19 09/03/19 07:00 08:05 08:19 Temp 97.9 97.9 Pulse 79 79 Resp 18 B/P (MAP) 119/70 (86) 119/70 Pulse Ox 98 O2 Delivery Room Air Room Air Intake and Output 09/02/19 09/02/19 09/03/19 14:59 22:59 06:59 Intake Total 2250 ml Output Total 1700 ml 800 ml Balance 550 ml -800 ml STEFFANY PRABHAKAR MD Sep 03, 2019 09:54
[2019-09-03] MEDS ORDERED: hydroCHLOROthiazide 25 MG TABLET PO SCH (10:00)
[2019-09-03 11:00] VITALS: BP 132/52
[2019-09-03] MEDS: oxyCODONE/APAP 7.5/325 1 TAB TABLET PO PRN (11:35)
--- NOTE | 2019-09-03 13:35 | RAD ---
VENOUS LOWER EXT BILATERAL 09/03/2019 12:06 PM Clinical Information: Bilateral lower extremity edema. Comparison: None. Technique: Multiple grayscale, color Doppler, and spectral Doppler sonographic images of the lower extremity venous structures were obtained. Findings: The right common femoral, femoral, and popliteal veins exhibit normal compression, respiratory phasicity, and augmentation. No intraluminal thrombi are identified. Color Doppler flow is demonstrated in the right posterior tibial veins. The left common femoral, femoral, and popliteal veins exhibit normal compression, respiratory phasicity, and augmentation. No intraluminal thrombi are identified. Color Doppler flow is demonstrated in the left posterior tibial veins. Greater saphenous veins are patent at the saphenofemoral junction. Impression: 1. No evidence of deep venous thrombosis. Diffuse lower extremity edema is noted. Electronically signed by: Kenyetta Keane MD (09/03/2019 1:31 PM) [id number]
--- NOTE | 2019-09-03 14:03 | PDOC3 ---
Discharge Summary Date of Discharge: Sep 03, 2019 Follow-Up: 3-5 days Admitting Diagnosis comment: DISCHARGE DX Chief Complaint Bilateral LE cellulitis, readmission, recurred after 1 WEEk, FAILED OP AUGMentin Obesity HTN,dyslipidmeia - chronic stable chronic LE edema - on HCTZ Hypokalemia on HCTZ 25 min pt exam, chart review D/C P-NANCY > 50% of time spent with exam, chart review, pt care coordination History of Present Illness History of Present Illness redness of legs better BUt swelling about the same, causing her leg pains K 4,.4 after replacement Denied inpt statuss, peer to peer with DR Joy PLAN: LAsix 40 IVP now then qdaily Dc HCTZ for now while on lasix COnt PO zyvox, antifungal IV and vanc per ID So far BC neg She is keeping legs elevated NOs leep - ambien qhs tonight Home on Zyvox and fluconazole for 7 days OK WITH ID Vitals Vitals Vital Signs Date Time Temp Pulse Resp B/P (MAP) Pulse Ox O2 Delivery O2 Flow Rate FiO2 09/03/19 08:19 79 119/70 09/03/19 08:05 Room Air 09/03/19 07:00 97.9 18 98 97.9 Physical Exam Physical Exam CONSTITUTIONAL: She is pleasant. She is cooperative. She is in no acute distress. HEENT: Pupils are equal and reactive with normal conjunctivae. Oral cavity: Pharynx is clear. NECK: Supple. Good range of motion. LUNGS: Clear to auscultation bilaterally. HEART: S1, S2. ABDOMEN: Morbidly obese, soft, nontender, and nondistended with positive bowel sounds. EXTREMITIES: Without clubbing or cyanosis. Her right upper extremity is immobilized. Bilateral lower extremities have erythema and warmth from just about her foot to the mid upper third - improving still. Much less edema She has a little tracking along the mid aspect of her thigh. She also has some tinea on her feet bilaterally. SKIN: Otherwise warm without signs of rash. NEUROLOGIC: She is nonfocal. PSYCHIATRIC: Affect is pleasant. General: Alert, Oriented X3, Cooperative, No acute distress Heart: Regular rate, Normal S1, Normal S2 Lungs: Clear Abdomen: Normal bowel sounds, Soft, No tenderness, No hepatosplenomegaly, No masses Extremities: No cyanosis Skin: Other (legs both LE mildy red, mildly swollen, warm to touch, no open skin lesions, good pulses) Home on Zyvox and fluconazole for 7 days Brief Hospital Course Ms. Callaway is a 54 old [sex] who presented with [CELLULITIS OF LEGS ] CONDITION AT DISCHARGE: Improved Discharge Medications Current Medications Amlodipine Besylate (Norvasc) 10 mg DAILY PO Last administered on 09/03/19 08:19; Start 08/31/19 at 09:00 Atorvastatin Calcium (Lipitor) 20 mg HS PO Last administered on 09/02/19 21:10; Start 08/30/19 at 21:00 Bupropion HCl (Wellbutrin Sr) 150 mg BID PO Last administered on 09/03/19 08:19; Start 08/30/19 at 21:00 Celecoxib (CeleBREX) 100 mg BID PO Last administered on 09/03/19 08:19; Start 08/30/19 at 21:00 Hydrochlorothiazide (Hydrodiuril) 25 mg DAILY PO Last administered on 09/02/19 09:41; Start 08/31/19 at 09:00; Stop 09/02/19 at 10:16; Status DC Oxycodone/ Acetaminophen (Percocet 7.5/ 325) 1 tab PRN Q4HRS PRN PO MODERATE TO SEVERE PAIN Last administered on 09/03/19 11:35; Start 08/30/19 at 19:00 Citalopram Hydrobromide (CeleXA) 40 mg DAILY PO Last administered on 09/03/19 08:19; Start 08/31/19 at 09:00 Multivitamins (Thera M Plus) 1 tab DAILY PO Last administered on 09/03/19 08:19; Start 08/31/19 at 09:00 Fish Oil (Fish Oil) 2,000 mg DAILY PO Last administered on 09/03/19 08:19; Start 08/31/19 at 09:00 Vancomycin HCl (Vanco Per Pharmacy) 1 each PRN DAILY PRN MC SEE COMMENTS Last administered on 08/31/19at 13:12; Start 08/30/19 at 19:15; Stop 09/01/19 at 08:46; Status DC Vancomycin HCl 2 gm/Sodium Chloride 500 ml @ 250 mls/hr 1X ONCE IV Last administered on 08/30/19at 21:00; Start 08/30/19 at 20:30; Stop 08/30/19 at 22:29; Status DC Vancomycin HCl 2 gm/Sodium Chloride 500 ml @ 250 mls/hr Q12H IV Last administered on 08/31/19at 20:50; Start 08/31/19 at 09:00; Stop 09/01/19 at 08:46; Status DC Vancomycin HCl (Vancomycin Trough Level) 1 each 1X ONCE MC ; Start 09/01/19 at 08:30; Stop 09/01/19 at 08:31; Status DC Potassium Chloride (Klor-Con) 40 meq 1X ONCE PO Last administered on 08/31/19at 08:55; Start 08/31/19 at 08:15; Stop 08/31/19 at 08:18; Status DC Ondansetron HCl (Zofran) 4 mg PRN Q6HRS PRN IVP NAUSEA/VOMITING; Start 08/31/19 at 08:15 Acetaminophen (Tylenol) 500 mg PRN Q6HRS PRN PO MILD PAIN / TEMP; Start 08/31/19 at 08:15 Morphine Sulfate (Morphine Sulfate) 2 mg PRN Q2HR PRN IV PAIN; Start 08/31/19 at 08:15 Clonidine HCl (Catapres) 0.1 mg 1X ONCE PO Last administered on 08/31/19at 08:55; Start 08/31/19 at 08:15; Stop 08/31/19 at 08:18; Status DC Clonidine HCl (Catapres) 0.1 mg PRN Q1HR PRN PO HYPERTENSION; Start 08/31/19 at 08:15 Lactobacillus Rhamnosus (Culturelle) 1 cap BID PO Last administered on 09/03/19at 08:18; Start 08/31/19 at 21:00 Potassium Chloride (Klor-Con) 40 meq 1X ONCE PO Last administered on 09/01/19at 09:26; Start 09/01/19 at 08:30; Stop 09/01/19 at 08:34; Status DC Linezolid (Zyvox) 600 mg BID PO Last administered on 09/03/19at 08:19; Start 09/01/19 at 09:00 Fluconazole (Diflucan) 200 mg DAILY PO Last administered on 09/03/19at 08:19; Start 09/01/19 at 09:00 Furosemide (Lasix) 40 mg 1X ONCE IVP Last administered on 09/02/19at 11:35; Start 09/02/19 at 10:15; Stop 09/02/19 at 10:23; Status DC Furosemide (Lasix) 20 mg DAILY IVP ; Start 09/03/19 at 09:00; Stop 09/03/19 at 09:03; Status DC Zolpidem Tartrate (Ambien) 5 mg PRN QHS PRN PO INSOMNIA Last administered on 09/02/19at 23:12; Start 09/02/19 at 10:30 Hydrochlorothiazide (Hydrodiuril) 25 mg DAILY PO Last administered on 09/03/19at 10:50; Start 09/03/19 at 10:00 Active Scripts Active Augmentin 875-125 Tablet (Amoxicillin/Potassium Clav) 1 Each Tablet 1 Tab PO BID Celebrex (Celecoxib) 100 Mg Capsule 1 Cap PO BID Percocet 7.5-325 Mg Tablet (Oxycodone/Acetaminophen) 1 Each Tablet 1 Tab PO PRN Q4HRS PRN Reported Ondansetron HCl 4 mg/2 ml Syr (Ondansetron HCl/Pf) 4 Mg/2 Ml Syringe 4 Mg IJ PRN Q6HRS PRN Tylenol (Acetaminophen) 325 Mg Tablet 650 Mg PO PRN Q4HRS PRN Ambien (Zolpidem Tartrate) 5 Mg Tablet 5 Mg PO PRN QHS PRN Multivitamins (Multivitamin) 1 Each Tablet 1 Tab PO DAILY Fish Oil 1,000 Mg Softgel ([place]-3 Fatty Acids/Fish Oil) 1 Each Capsule 2 Each PO DAILY Lipitor (Atorvastatin Calcium) 20 Mg Tablet 20 Mg PO HS Hydrochlorothiazide Tablet (Hydrochlorothiazide) 25 Mg Tablet 25 Mg PO DAILY Escitalopram Oxalate 20 Mg Tablet 1 Tab PO DAILY Wellbutrin Sr (Bupropion Hcl) 150 Mg Tablet.er 1 Tab PO BID Norvasc (Amlodipine Besylate) 10 Mg Tablet 10 Mg PO DAILY Vital Signs Vital Signs Date Time Temp Pulse Resp B/P (MAP) Pulse Ox O2 Delivery O2 Flow Rate FiO2 09/03/19 13:02 Room Air 09/03/19 11:00 97.6 74 18 132/52 (78) 96 97.6 Allergies Allergies Coded Allergies Type Severity Reaction Last Updated Verified No Known Drug Allergies 08/06/19 No Disposition/Orders: D/C to Home Patient Instructions D/C PLANNING 25 MIN STEFFANY PRABHAKAR MD Sep 03, 2019 14:03
[2019-09-03] MEDS ORDERED: Fluconazole PO (14:07)
[2019-09-03] MEDS ORDERED: LACT1CAP19 PO (14:07)
[2019-09-03] MEDS ORDERED: LINE600T12 PO (14:07)
--- NOTE | 2019-09-03 14:09 | DISCH ---
DISCHARGE INSTRUCTIONS Condition on Discharge Condition on Discharge: Stable Activity After Discharge Activity Instructions for Disc: Activity as tolerated Lifting Instructions after Dis: No heavy lifting, No pulling or pushing Driving Instructions after Dis: Do not drive today Weight Bearing Status after Di: As tolerated Diet after Discharge Diet after Discharge: Cardiac, Regular Wound Incision Care Wound/Incision Care: Ice to area for comfort, Change dressing Contacting the DRRyan after DC Call your doctor for: Concerns you may have STEFFANY PRABHAKAR MD Sep 03, 2019 14:08
[2019-09-03 15:00] VITALS: BP 150/83
--- NOTE | 2019-09-03 16:11 | NUR ---
Discharge Note: Patient was discharged home with self care. Patients didn't have an IV to discontinue. Patient agreeable with discharge plans. Patient was given discharge summary/instructions, follow-ups, prescriptions and educational material. Patient was given Tubigrip as ordered per doctor. Patient did not have any further questions or concerns. Patient was taken to the ER entrance via wheelchair with all personal belongings accompanied by CHANTALE Quintero, where her car was parked.
== END 2019-09-03 16:16 | disposition home or self-care (01) | DRG 603 ==
LOC: 5 SOUTH 17:11
PROVIDERS: ADMIT Internal Medicine; ATTEND Internal Medicine
DX: L03.115 Cellulitis of right lower limb (principal); Z68.43 Body mass index [BMI] 50.0-59.9, adult; E87.6 Hypokalemia; L03.116 Cellulitis of left lower limb; B35.9 Dermatophytosis, unspecified; E66.01 Morbid (severe) obesity due to excess calories; E78.00 Pure hypercholesterolemia, unspecified; E78.5 Hyperlipidemia, unspecified; I10 Essential (primary) hypertension; Z82.49 Family history of ischemic heart disease and other diseases of the circulatory system; Z96.641 Presence of right artificial hip joint; F32.9 Major depressive disorder, single episode, unspecified
CPT/HCPCS: 36415; 80048; 84132; 85025; 85651; 87040; 93970; J1940; J3370; J7040; G0378

== ENCOUNTER → 2020-09-22 | Outpatient (CLI) | payer OTHER ==
[~2020-09-22] MED LIST changes: +ACET325T9 PO; +BUPIVACAINE MPF 0.25% 10 ML VIAL. ONE; +Fluconazole PO; +GLIM2TAB7 PO; +IOHEXOL 180 MG/ML 10 ML VIAL. ONE; +LACT1CAP19 PO; +LINE600T12 PO; +LOSA1TAB22 PO; +METF500T16 PO; +MULT-445 PO; -MULT1TAB52 PO; +NYST15CR TP; +ONDA4DIS4 IJ; +ZOLP5TAB PO; +methylPREDNISolone ACETATE 80 MG/ML VIAL. ONE
--- NOTE | 2020-09-22 13:02 | PDOC1 ---
INITIAL PAIN CONSULT DATE OF SERVICE: DOS: DATE: 09/22/20 TIME: 12:55 CHIEF COMPLAINT: Chief Complaint: Left hip pain HISTORY OF PRESENT ILLNESS: 55-year-old female presents history of pain in the left hip and low back and left lower extremity for about 5 years worse over the past 1 to 2 years with standing walking changing positions. Patient reports he had similar pain in the right hip and it was replaced in 2013. Patient ports now the left hip is significantly painful with walking putting all of her weight on the left side specially with stepping on a stair or curb, and putting all of her weight on that left side. Patient reports it is radiating to the groin on the left was in the posterior gluteus and some in the posterior thigh as well as anterior thigh and groin as well. Patient reports the pain is constant sharp stabbing with walking changes during the day with activity better with sitting or laying down it is an aching pain in the hip itself patient reports at night it is waking from sleep about once or twice a night especially she lays on her left side. Patient ports is not effective bowel bladder control but does affect her ability walk fairly significantly she not use any assistive devices however. Patient does not physical therapy in the past with her right hip she doing the stretching strength exercises becoming more difficult to walk and stretch secondary to the pain on the left side. Patient tried ibuprofen as well as Tylenol both of which do decrease the pain but only to a moderate extent may be 20 to 30%. PAST MEDICAL HISTORY: PMH: Type 2 diabetes, hypertension, arthritis, obesity PREVIOUS SURGERIES: Past Surgical Hx: Right hip replacement 2013, right rotator cuff replacement 2018, right hammertoe repair 2009, right foot ORIF 1981, tubal ligation 1999, lumbar discectomy 2012, tonsillectomy 1979, 1990, endometrial ablation 2014, conization 2003, laser procedure 2001 CURRENT MEDICATIONS: Current Meds: Active Scripts Medications Dose Route/Sig Max Daily Dose Days Date Category Nystatin 15 Gm Cream..g. 1 Jake TP TID 09/22/20 Reported Escitalopram Oxalate 20 Mg Tablet 1 Tab PO DAILY 09/22/20 Reported Metformin Hcl 500 Mg Tablet 500 Mg PO BIDWMEALS 09/22/20 Reported Glimepiride 2 Mg Tablet 1 Tab PO DAILY 09/22/20 Reported Losartan-Hctz 100-25 Mg Tab (Losartan/Hydrochlorothiazide) 1 Each Tablet 1 Tab PO DAILY 09/22/20 Reported Tylenol (Acetaminophen) 325 Mg Tablet 650 Mg PO PRN Q4HRS PRN 08/30/19 Reported Lipitor (Atorvastatin Calcium) 20 Mg Tablet 20 Mg PO HS 08/06/19 Reported Escitalopram Oxalate 20 Mg Tablet 1 Tab PO DAILY 08/06/19 Reported Wellbutrin Sr (Bupropion Hcl) 150 Mg Tablet.er 1 Tab PO BID 08/06/19 Reported ALLERGIES; Allergies: Coded Allergies: No Known Drug Allergies (Unverified , 08/06/19) FAMILY HISTORY: Family Hx: Heart disease and diabetes SOCIAL HISTORY: Social Hx: Patient drinks alcohol maybe 1 drink per month does not smoke not use any illegal illicit recreational drugs is lives with her spouse lives locally in [facility] REVIEW OF SYSTEMS: ROS: Positive for those items mentioned in history of present illness, all systems are reviewed, otherwise negative, is complete full and well-documented on patient's chart PHYSICAL EXAM: VS: Pressure is 144/94 pulse 86 respirations 18 temperature is 90.5 F height is 5 foot 7 inches weight is 321 pounds PE: PHYSICAL EXAMINATION: GENERAL: The patient is awake, alert, oriented, appropriate, very pleasant demeanor HEENT: Shows normocephalic, atraumatic. Extraocular movements are intact and symmetrical. Oral cavity: Mucous membranes moist and pink. Dentition is intact. NECK: Shows anterior throat supple without palpable lymphadenopathy noted. Swallow reflex symmetrical. CHEST: Shows normal on inspection. Breath sounds are clear bilaterally, no rales rhonchi or wheezes auscultated. HEART: Shows S1, S2 clear. No murmurs auscultated. ABDOMEN: Soft, nontender, nondistended, obese. No palpable organomegaly is note d. No rebound or guarding demonstrated. BACK: Shows spine grossly in the midline. Normal-appearing cervical lordotic curvature. There is slightly increased thoracic kyphosis, some minor flattening of the lumbar lordotic curvature. Lumbar paraspinous muscles show symmetrical on inspection, on palpation shows some moderate tenderness diffusely throughout the upper, middle and lower distribution of the paraspinous muscles without specific trigger points, without radiation of pain. The patient has good rot ational motion of the lumbar spine, both laterally as well as extension and flexion without significant difficulty. No tenderness over the spinous processes, sacrum or sacroiliac regions. EXTREMITIES: Lower extremities show deep tendon reflexes 1+ in the patellar and tendo calcaneus tendons. Motor exam is 5 on a scale of 5 with right dorsiflexion, extension, quadriceps and hamstring flexion and 5/5 on the left. Peripheral pulses are 1+ posterior tibial. No peripheral edema is noted bilaterally. Lower extremities are warm and dry to touch, equal in color and appearance. Miguel's maneuvers are positive on the left with external rotation and posterior displacement of the left hip, negative on the right. The patient is able to stand, putting all of her weight on her left leg however causes significant pain in the left posterior hip as well as into the groin. SKIN: Shows warm and dry, good turgor. No edema. No sores, rashes or bruising throughout. IMPRESSION: Impression: 55-year-old female with 5-year history pain in the left hip and groin Plain films showing significant joint space narrowing and osteoarthritis of left hip Arthritis Hypertension Type 2 diabetes Obesity Plan: Options were discussed with the patient including conservative medical management is continued physical therapies and interventional techniques. Patient would like to interventional techniques. We discussed a left intra- articular hip joint injection today using description as well as anatomical models to describe the procedure. Risks were discussed including but not limited to bleeding infection possibility of intravascular injection sequelae spread to local anesthetic numbness side effects of steroid medication exposure fluoroscopy and poor results chronic pain control. Patient understands wished to proceed. Patient return to clinic in approximately 4 weeks for follow-up was counseled as to return appointment activity level and side effects to be aware of. Under sterile prep and drape patient in supine position using C-arm fluoroscopic guidance patient's left hip was sterilely prepped and draped in usual fashion using C-arm fluoroscopy a skin wheal was made with 1% lidocaine anesthetize laterally and the trajectory to enter the left intra-articular hip joint. Using a 22-gauge 7 inch Quincke needle with stylette, the hip joint was entered without difficulty and 2 cc of Omnipaque was injected with good spread throughout the hip joint without washout or uptake. At this time solution containing 3 cc 0.25% ropivacaine and 80 mg Depo-Medrol was then injected into the joint space needle was removed sterile bandage was applied. Patient tolerated the procedure well and had no complications. MARIUSZ GAMBLE MD Sep 22, 2020 13:02
== END | disposition home or self-care (01) ==
LOC: PNCL 08:12
PROVIDERS: ATTEND Anesthesiology
DX: M16.12 Unilateral primary osteoarthritis, left hip (principal); I10 Essential (primary) hypertension; E11.9 Type 2 diabetes mellitus without complications; E66.9 Obesity, unspecified; E78.00 Pure hypercholesterolemia, unspecified; F41.9 Anxiety disorder, unspecified; F32.9 Major depressive disorder, single episode, unspecified; Z98.51 Tubal ligation status; Z79.899 Other long term (current) drug therapy; Z87.891 Personal history of nicotine dependence; Z98.890 Other specified postprocedural states
CPT/HCPCS: 20610; 77002; J1040; J3490; Q9965; 77012

== ENCOUNTER → 2021-03-07 | Outpatient (CLI) | payer OTHER ==
[~2021-03-07] MED LIST changes: -BUPIVACAINE MPF 0.25% 10 ML VIAL. ONE; -IOHEXOL 180 MG/ML 10 ML VIAL. ONE; -methylPREDNISolone ACETATE 80 MG/ML VIAL. ONE
[2021-03-07 14:15] LABS: BASO % 1 % (0-3); EOS # 0.1 x10^3/uL (0.0-0.7); EOS % 3 % (0-3); HEMATOCRIT 42.2 % (36.0-47.0); HEMOGLOBIN 14.4 g/dL (12.0-15.5); LYMPH # 1.4 x10^3/uL (1.0-4.8); LYMPH % 29 % (24-48); MEAN CORPUSCULAR HEMOGLOBIN 31 pg (25-35); MEAN CORPUSCULAR HGB CONC 34 g/dL (31-37); MEAN CORPUSCULAR VOLUME 90 fL (79-100); MONO # 0.4 x10^3/uL (0.0-1.1); MONO % 8 % (0-9); NEUT # 2.9 x10^3/uL (1.8-7.7); NEUT % 60 % (31-73); PLATELET COUNT 201 x10^3/uL (140-400); RED BLOOD COUNT 4.71 x10^6/uL (3.50-5.40); RED CELL DISTRIBUTION WIDTH 14.5 % (11.5-14.5); WHITE BLOOD COUNT 4.8 x10^3/uL (4.0-11.0)
--- NOTE | 2021-03-07 14:15 | EKG ---
[facility] [address] [place] [address] Test Date: 2021-03-07 Test Time: 14:12:46 Pat Name: KRISTIE MILLS Department: Room: Gender: F Nurse Transplant: LUCILLE : 1965 Requested By: SEEMA HERNANDEZ Order Number: [id number] Reading MD: Javy Lagos MD Measurements Intervals [place] Rate: 77 P: 44 DC: 178 QRS: 69 QRSD: 146 T: 29 QT: 446 QTc: 507 Interpretive Statements SINUS RHYTHM RIGHT BUNDLE BRANCH BLOCK Electronically Signed On 03-08-2021 10:13:48 CDT by Javy Lagos MD
[2021-03-07 14:41] LABS: ALBUMIN 4.2 g/dL (3.4-5.0); ALBUMIN/GLOBULIN RATIO 1.2 (1.0-1.7); CALCIUM 8.8 mg/dL (8.5-10.1); CREATININE 0.8 mg/dL (0.6-1.0); GFR 74.7; TOTAL BILIRUBIN 0.7 mg/dL (0.2-1.0); TOTAL PROTEIN 7.7 g/dL (6.4-8.2)
[2021-03-07 14:42] LABS: PROTHROMBIN TIME PATIENT 13.3 SEC (11.7-14.0)
--- NOTE | 2021-03-07 16:49 | RAD ---
EXAM: Chest, 2 views. HISTORY: Preoperative evaluation. COMPARISON: None. FINDINGS: 2 views of the chest are obtained. There is no infiltrate or pneumothorax. The heart is nor mal in size. IMPRESSION: No acute pulmonary finding. Electronically signed by: Mary Jane Machado MD (03/07/2021 4:47 PM) [facility]
[2021-03-07 23:08] LABS: HEMOGLOBIN A1C 7.9 % (4.8-5.6)
== END ==
LOC: SURGPAT 13:27
PROVIDERS: ATTEND Orthopaedic Surgery
DX: Z01.818 Encounter for other preprocedural examination (principal); I45.10 Unspecified right bundle-branch block; M16.12 Unilateral primary osteoarthritis, left hip
CPT/HCPCS: 36415; 71046; 80053; 82306; 83036; 85025; 85610; 85651; 85730; 87641; 93005

== ENCOUNTER → 2021-03-16 | Outpatient (CLI) | payer OTHER ==
[~2021-03-16] MED LIST changes: +MELO7.5T5 PO; +WARF-31 PO
== END ==
LOC: LAB 13:02
PROVIDERS: ATTEND Orthopaedic Surgery
DX: Z01.812 Encounter for preprocedural laboratory examination (principal); M16.12 Unilateral primary osteoarthritis, left hip; Z96.652 Presence of left artificial knee joint; Z20.822 Contact with and (suspected) exposure to COVID-19
CPT/HCPCS: U0003; U0005

== ENCOUNTER 2021-03-20 07:23 | Inpatient (IN) | payer OTHER ==
[2021-03-20] VITALS (11 sets, daily range): BP systolic 91–157; BP diastolic 56–72
[~2021-03-20] VITALS: Ht 167.6 cm; Wt 148.3 kg
[~2021-03-20 07:23] MED LIST changes: +ACETAMINOPHEN 500 MG TABLET PO PRN; +GABAPENTIN 300 MG CAPSULE. PO PRN; +HYDROmorphone 2 MG/ML VIAL IVP PRN; +IV RINGERS,LACTATED 1000ML 1,000 ML IV SCH; -MELO7.5T5 PO; +MELOXICAM 7.5 MG TABLET PO PRN; +MORPHINE SULFATE 5 MG, KETOROLAC 30MG VIAL 30 MG, ROPIVacaine 0.5% PF 60 ML, EPINEPHrin... INT ART ONE; +PROCHLORPERAZINE 10 MG/2 ML VIAL. IVP PRN; +TRANEXAMIC ACID 1,000 MG in IV NS 50ML -- 1ST BAG INJ ONE; -WARF-31 PO; +ceFAZolin SODIUM 3 GM in IV D5W 100 ML IV PRN; +fentaNYL PF VIAL 100 MCG/2 ML VIAL IVP PRN
[2021-03-20] MEDS ORDERED: MELO7.5T5 PO (07:59)
[2021-03-20] MEDS ORDERED: WARF-31 PO (07:59)
[2021-03-20] MEDS ORDERED: TRANEXAMIC ACID 1,000 MG in IV NS 50ML -- 2ND BAG INJ ONE (08:00)
[2021-03-20] MEDS ORDERED: DEXTROSE 50% 25 GM / 50ML DISP.SYRIN. IV PRN (08:00)
[2021-03-20] MEDS ORDERED: fentaNYL PF VIAL 100 MCG/2 ML VIAL IVP PRN (08:00)
[2021-03-20] MEDS ORDERED: 0.9 % SODIUM CHLORIDE 10 ML DISP.SYRIN. IV PRN (08:00)
[2021-03-20] MEDS ORDERED: PROCHLORPERAZINE 5 MG TABLET. PO PRN (08:00)
[2021-03-20] MEDS ORDERED: ceFAZolin SODIUM 3 GM in IV DEXTROSE 5% 100ML 100 ML IV SCH (08:00)
[2021-03-20] MEDS ORDERED: diphenhydrAMINE 50 MG/ML VIAL IVP PRN (08:00)
[2021-03-20] MEDS: FERROUS SULFATE 325 MG TABLET. PO SCH ×2 (08:00→16:46)
[2021-03-20] MEDS ORDERED: CALCIUM CARBONATE 500 MG TAB.CHEW PO PRN (08:00)
[2021-03-20] MEDS ORDERED: MORPHINE SULFATE 2 MG/ML VIAL. IVP PRN (08:00)
--- NOTE | 2021-03-20 08:14 | HP ---
ADMIT DATE: 03/20/2021 CHIEF COMPLAINT: Left hip pain. HISTORY OF PRESENT ILLNESS: The patient is a 55-year-old female that had a right total hip arthroplasty previously done by Dr. Mendoza and has had progressive left hip pain for the past 6-7 years, now very severely limiting her activities of daily living and affecting her mainly in the groin area. She [facility] and it only worked a couple of months and her pain returned and following our clinic visit, she wants to proceed with more definitive treatment. PAST MEDICAL HISTORY: Significant for type 2 diabetes, lymphedema, hypertension, hyperlipidemia and depression. PAST SURGICAL HISTORY: Right hip replacement, foot surgery on her hammertoe, endometrial ablation, tubal ligation, diskectomy, and tonsillectomy. FAMILY HISTORY: She denies any significant family history. SOCIAL HISTORY: She is a former smoker, occasional alcohol use. Denies drug use. MEDICATIONS: List is reviewed. ALLERGIES: She has no known drug allergies. REVIEW OF SYSTEMS: She was found to be vitamin D deficient in her preoperative testing and is currently taking 2000 international units of vitamin D daily. Of other note, she was leaning toward rehabilitation placement as her works seven days a week and is unable to get off and she really does not have any family around in the area. PHYSICAL EXAMINATION: VITAL SIGNS: Per admission sheet. HEENT: Atraumatic, normocephalic. HEART: Regular rate and rhythm. LUNGS: Clear to auscultation bilaterally. ABDOMEN: Benign. EXTREMITIES: Left hip, she is very tender on her already decreased extremes of range of motion compared to the right. She has a well-healed incision from posterior approach total hip arthroplasty on the right and has normal motion, stability, bilateral knees and ankles. DIAGNOSTIC DATA: X-rays show bone on bone degenerative change in the left hip with well-placed total hip arthroplasty on the right. ASSESSMENT: Primary osteoarthritis of the left hip and a history of right total hip arthroplasty as well as vitamin D deficiency, being treated. TREATMENT PLAN: I had gone over with her again risks, benefits, postoperative course of total hip arthroplasty including the possibility of leg length inequality, instability, premature wear, loosening, infection, nerve or blood vessel damage, medical or other anesthetic complications among others. We also did discuss the rehabilitation option as well as home health, if she is getting around safely to perform the transfers and ambulation, etc. at home, which can be assessed better in physical therapy postoperatively. All her questions were answered. She wishes to proceed with total hip arthroplasty, which will include joint center observation to follow. KANU DR: Nathan TID: [id number]
[2021-03-20 08:25] LABS: PROTHROMBIN TIME PATIENT 12.8 SEC (11.7-14.0)
[2021-03-20] MEDS ORDERED: SCOPOLAMINE 1.5MG PATCH. TD ONE (08:30)
[2021-03-20] MEDS: INSULIN LISPRO 100 UNIT/ML 3ML VIAL for OP,RR ONLY. SQ PRN ×2 (08:34→13:23)
[2021-03-20] MEDS ORDERED: INSULIN LISPRO 100 UNIT/ML 3ML VIAL for OP,RR ONLY. SQ ONE (08:35)
[2021-03-20] MEDS ORDERED: GLYCOPYRROLATE 1 MG/5 ML VIAL. ONE (08:46)
[2021-03-20] MEDS ORDERED: NEOSTIGMINE METHYLSULFATE 5 MG/5 ML SYRINGE. ONE (08:46)
[2021-03-20] MEDS ORDERED: SEVOFLURANE > 120 MINUTES. IH ONE ×2 (08:46→11:46)
[2021-03-20] MEDS ORDERED: ROCURONIUM 50 MG/5 ML VIAL. ONE (08:46)
[2021-03-20] MEDS ORDERED: fentaNYL PF VIAL 250 MCG/5 ML VIAL ONE (08:47)
[2021-03-20] MEDS ORDERED: MIDAZOLAM HCL/PF 2 MG/2 ML VIAL. ONE (08:47)
[2021-03-20] MEDS ORDERED: ISOFLURANE UP TO 15 MINUTES. IH ONE (08:49)
[2021-03-20] MEDS ORDERED: TRANEXAMIC ACID in NS IVPB 100 ML ONE (08:55)
[2021-03-20] MEDS ORDERED: VANCOMYCIN 1 GM VIAL. ONE (08:55)
[2021-03-20] MEDS: MULTIVITAMIN with MINERAL TABLET. PO SCH (09:00)
[2021-03-20] MEDS: SENNOSIDES/DOCUSATE 8.6/50MG TABLET. PO SCH (09:00)
[2021-03-20] MEDS ORDERED: fentaNYL PF VIAL 100 MCG/2 ML VIAL ONE ×3 (10:34→12:33)
[2021-03-20] MEDS: ONDANSETRON PF 4 MG/2 ML VIAL. IVP SCH ×2 (12:00→18:00)
[2021-03-20] MEDS: ONDANSETRON ODT 4 MG TAB.RAPDIS. PO SCH ×2 (12:00→18:00)
[2021-03-20] MEDS ORDERED: PROCHLORPERAZINE 10 MG/2 ML VIAL. ONE (12:39)
[2021-03-20] MEDS: fentaNYL PF VIAL 100 MCG/2 ML VIAL IVP PRN ×2 (12:49→13:08)
[2021-03-20] MEDS ORDERED: MORPHINE SULFATE 2 MG/ML VIAL. ONE (12:52)
[2021-03-20] MEDS ORDERED: HYDROmorphone 2 MG/ML VIAL ONE (13:06)
[2021-03-20] MEDS: MORPHINE SULFATE 2 MG/ML VIAL. IVP PRN ×2 (13:09→13:56)
--- NOTE | 2021-03-20 13:19 | PDOC4 ---
Operative Note Operative Note Date of surgery: 03/20/2021 Preoperative diagnosis: Degenerative joint disease left hip Postoperative diagnosis: Same Operative procedure: Left total hip arthroplasty with posterior approach Surgeon Lisandro Ditching Machine Engineer: Tawanda Gilliam and Olga Cole first aid trainer Anesthesia: General Estimated blood loss: 200 cc Complications: None Drains: None Operative indications: Please see my orthopedic clinic note and dictated history and physical for detailed operative indications and note that we covered risks benefits postoperative course of the procedure. All her questions were answered and she wishes to proceed with surgical evaluation and treatment having given informed consent Operative text: Patient was identified procedure verified patient placed in the lateral position on the operating table after adequate amounts of general anesthesia were administered. All bony prominences were well-padded and left hip was prepped and draped in the standard sterile fashion. After timeout was performed patient procedure identified and verified an incision was made curvilinear centered over the greater trochanter and dissection carried out down to the iliotibial band and gluteal fascia which were split in line with their fibers. A Charnley retractor was placed external rotators were divided from their insertion and hip capsule was split in a T fashion. Hip was then dislocated and femoral neck cut was made using a Bna Avenir broach for reference and the femoral head was removed and sized noting severe degenerative change and sent for pathological evaluation. Reaming was carried out from a size 45 to a size 51 with a size 52 cluster hole cup placed in proper version and alignment and achieved a very solid scratch fit and therefore no screw fixation was applied. A 36 mm vitamin E liner was impacted into place. Femur was then prepared with a box osteotome rattail rasp and successive size broaching up to a size 4 Avenir femoral trial broach standard offset which provided excellent stability and fit within the canal. Trial fitting with a - 3.5 36 mm head with a standard offset neck to reproduce leg length and offset appropriately. Trial components were removed and a size 4 standard offset collared Avenir stem was impacted into place with a -3.5 ceramic 36 mm head. Excellent stability and range of motion were noted and leg length reproduced according to measurements from the contralateral side. Thorough irrigation carried out with dilute Betadine solution and then washed further with normal saline solution and pulse lavage. Intra-articular mixture was injected subperiosteally throughout the joint capsule and subcutaneous areas. Hip capsule was repaired with max braid suture and external rotators attached transosseously with max braid suture. Fascia was closed with #1 PDS strata fix suture in a running fashion subcutaneous closure with buried Vicryl skin closure with subcuticular Monocryl and a loco dressing was applied. Patient was returned to recovery room in stable condition having tolerated the procedure well. Tawanda Gilliam and Olga Cole first assists were present for the procedure and assisted in the patient positioning prepping draping retraction closure and dressings SEEMA HERNANDEZ MD Mar 20, 2021 13:19
--- NOTE | 2021-03-20 13:20 | RAD ---
Exam Date: 03/20/2021 12:45 PM XR BILATERAL HIP (WITH OR WITHOUT PELVIS) LEFT 2 VIEWS Indication: Reason: POST OP IN PACU. / Spl. Instructions: / History: FINDINGS: Status post bilateral total hip arthroplasties. The femoral prostheses are positioned telma trally within the acetabular cups. No evidence for hardware failure, loosening, acute fracture, or d islocation. Alignment is anatomic. Soft tissue air is consistent with recent postoperative state. IMPRESSION: Status post bilateral total hip arthroplasties as described. Electronically signed by: Doyle Flores MD (03/20/2021 1:17 PM) [id number]
[2021-03-20] MEDS: IV NORMAL SALINE 1000ML BAG 1,000 ML IV SCH (15:08)
[2021-03-20] MEDS: ceFAZolin SODIUM 3 GM in IV DEXTROSE 5% 100ML 100 ML IV SCH ×2 (15:09→21:25)
[2021-03-20] MEDS ORDERED: WARFARIN 7.5 MG TABLET. PO ONE (16:00)
[2021-03-20] MEDS: oxyCODONE IR 5 MG TABLET PO PRN (21:26)
[2021-03-20] MEDS: ATORVASTATIN CALCIUM 20 MG TABLET PO SCH (21:26)
[2021-03-20] MEDS: NYSTATIN 100,000 UNIT/GM TOPICAL CREAM 15GM TUBE. TP SCH (21:26)
[2021-03-20] MEDS: buPROPion SR 150 MG TABLET.SA PO SCH (21:26)
[2021-03-21] MEDS: ceFAZolin SODIUM 3 GM in IV DEXTROSE 5% 100ML 100 ML IV SCH (03:40)
[2021-03-21 03:43] VITALS: BP 125/69
[2021-03-21] MEDS: traMADol 50 MG TABLET PO SCH ×3 (05:49→17:46)
[2021-03-21] MEDS: GABAPENTIN 100 MG CAPSULE. PO SCH ×3 (05:49→20:17)
[2021-03-21] MEDS: ONDANSETRON PF 4 MG/2 ML VIAL. IVP SCH ×2 (05:50)
[2021-03-21] MEDS: ONDANSETRON ODT 4 MG TAB.RAPDIS. PO SCH ×2 (05:50)
[2021-03-21] MEDS ORDERED: MAGNESIUM HYDROXIDE 2,400 MG/30 ML ORAL.SUSP. PO PRN (06:00)
[2021-03-21 07:00] VITALS: BP 134/68
[2021-03-21] MEDS: IV NORMAL SALINE 1000ML BAG 1,000 ML IV SCH (08:00)
[2021-03-21 08:02] LABS: PROTHROMBIN TIME PATIENT 14.7 SEC (11.7-14.0)
--- NOTE | 2021-03-21 08:22 | PDOC ---
PROGRESS NOTES Date of Service DATE: 03/21/21 TIME: 08:20 Subjective Subjective Problems overnight: A little groggy yesterday feels good today and got up last night to go to the bathroom hip feels better than it did before surgery pain controlled no other complaints Objective Vital Signs Vital Signs Date Time Temp Pulse Resp B/P (MAP) Pulse Ox O2 Delivery O2 Flow Rate FiO2 03/21/21 06:19 Nasal Cannula 3.0 03/21/21 05:49 20 96 03/21/21 03:43 97.6 89 125/69 (87) 97.6 Physical Exam Leg lengths equal distal neurovascular status intact good stability loco dressing clean dry intact Labs Laboratory Tests Test 03/20/21 08:00 03/20/21 08:09 03/20/21 13:19 03/20/21 20:47 Prothrombin Time 12.8 SEC (11.7-14.0) Prothromb Time International Ratio 1.0 (0.8-1.1) Activated Partial Thromboplast Time 33 SEC (24-38) Glucose (Fingerstick) 213 mg/dL (70-99) 237 mg/dL (70-99) 169 mg/dL (70-99) Test 03/21/21 07:00 03/21/21 07:21 Prothrombin Time 14.7 SEC (11.7-14.0) Prothromb Time International Ratio 1.2 (0.8-1.1) Glucose (Fingerstick) 170 mg/dL (70-99) Laboratory Tests Test 03/20/21 13:19 03/20/21 20:47 03/21/21 07:00 03/21/21 07:21 Glucose (Fingerstick) 237 mg/dL (70-99) 169 mg/dL (70-99) 170 mg/dL (70-99) Prothrombin Time 14.7 SEC (11.7-14.0) Prothromb Time International Ratio 1.2 (0.8-1.1) Imaging Postop x-rays show excellent reproduction of leg length and offset Assessment Assessment POD#1 left total hip arthroplasty Plan Plan of Care Warfarin anticoagulation Mobilize weightbearing as tolerated standard total hip precautions Patient desires rehab placement due to no family help and her works long hours Placement when stable Justicifation of Admission Dx: Justifications for Admission: Justification of Admission Dx: N/A SEEMA HERNANDEZ MD Mar 21, 2021 08:22
[2021-03-21] MEDS: NYSTATIN 100,000 UNIT/GM TOPICAL CREAM 15GM TUBE. TP SCH ×3 (09:00→20:17)
[2021-03-21] MEDS: metFORMIN 500 MG TABLET PO SCH ×2 (09:00→17:39)
[2021-03-21] MEDS ORDERED: MELOXICAM 7.5 MG TABLET PO SCH (09:00)
[2021-03-21] MEDS: buPROPion SR 150 MG TABLET.SA PO SCH ×2 (09:00→20:17)
[2021-03-21] MEDS: ACETAMINOPHEN 500 MG TABLET PO SCH ×3 (09:01→20:17)
[2021-03-21] MEDS: MELOXICAM 7.5 MG TABLET PO SCH (09:01)
[2021-03-21] MEDS: GLIMEPIRIDE 2 MG TABLET. PO SCH ×2 (09:02→17:39)
[2021-03-21] MEDS: SENNOSIDES/DOCUSATE 8.6/50MG TABLET. PO SCH (09:02)
[2021-03-21] MEDS: FERROUS SULFATE 325 MG TABLET. PO SCH ×2 (09:02→17:39)
[2021-03-21] MEDS: CITALOPRAM 20 MG TABLET. PO SCH (09:02)
[2021-03-21] MEDS: MULTIVITAMIN with MINERAL TABLET. PO SCH (09:02)
[2021-03-21] MEDS: LOSARTAN POTASSIUM 50 MG TABLET. PO SCH (09:02)
--- NOTE | 2021-03-21 10:25 | NUR ---
Pharmacy Warfarin Dosing Note S: Pharmacy consulted to assist with anticoagulation therapy started 03/20/21 O: KRISTIE MILLS is a 55 year old F with ELIOT LABS: Last INR: 1.2 Last dose of 7.5 mg given on 03/20/21 at 1646 Ongoing Drug Interactions: CELEXA, MOBIC A:INR of 1.2 is below desired range. Target range for this patient is: 1.6 - 2.5 P: Warfarin dose: 5 mg Today at 1600 Bridge Therapy: None Next INR due Pharmacy anticoagulation service will continue to follow. ALYCE ALEXANDER RP, 03/21/21 [id number]
[2021-03-21 11:00] VITALS: BP 94/47
[2021-03-21] MEDS ORDERED: ONDANSETRON ODT 4 MG TAB.RAPDIS. PO PRN (12:00)
[2021-03-21] MEDS ORDERED: ONDANSETRON PF 4 MG/2 ML VIAL. IVP PRN (12:00)
[2021-03-21 12:14] LABS: HEMATOCRIT 35.2 % (36.0-47.0); HEMOGLOBIN 11.6 g/dL (12.0-15.5)
[2021-03-21] MEDS: oxyCODONE IR 5 MG TABLET PO PRN ×2 (14:15→17:46)
[2021-03-21 15:00] VITALS: BP 101/47
[2021-03-21] MEDS ORDERED: WARFARIN 5 MG TABLET. PO ONE (16:00)
[2021-03-21] MEDS ORDERED: BISACODYL 10 MG SUPP.RECT. PR PRN (16:00)
[2021-03-21 19:00] VITALS: BP 135/61
[2021-03-21] MEDS: ATORVASTATIN CALCIUM 20 MG TABLET PO SCH (20:17)
[2021-03-21 23:00] VITALS: BP 106/55
[2021-03-22] MEDS: traMADol 50 MG TABLET PO SCH ×5 (00:27→22:04)
[2021-03-22 03:00] VITALS: BP 126/60
[2021-03-22] MEDS: ACETAMINOPHEN 500 MG TABLET PO SCH ×4 (04:49→21:00)
[2021-03-22] MEDS: oxyCODONE IR 5 MG TABLET PO PRN (04:49)
[2021-03-22 06:00] LABS: PROTHROMBIN TIME PATIENT 14.5 SEC (11.7-14.0)
[2021-03-22] MEDS: GABAPENTIN 100 MG CAPSULE. PO SCH ×3 (06:09→20:02)
[2021-03-22 07:00] VITALS: BP 101/50
--- NOTE | 2021-03-22 07:53 | SNU/HH DC ---
DISCHARGE ORDERS DISCHARGE INFORMATION: DISCHARGE DATE: Mar 22, 2021 FINAL DIAGNOSIS DJD left hip s/p arthroplasty CONDITION ON DISCHARGE: Stable CODE STATUS: Code Status: Full SENIOR CARE: SNF STAY <30 DAYS: Yes POST DISCHARGE ORDERS: ACTIVITY ORDERS: Other, see below (total hip precautions avoid internal rotation or extreme hip flexion) WEIGHT BEARING STATUS: As tolerated DIET AFTER DISCHARGE: ADA WOUND/INCISION CARE: Ice to area for comfort, Do not change dressing (when suction box stops at 1 week postop, cut tail of loco dressing and tape over to maintain seal), Other, see below (Nystatin to groin rash prn) FOLLOW-UP: PHYSICIAN FOLLOW-UP: Dr Mcmahon or Burke 2 weeks postop ANTICOAGULATION F/U NEEDED: [facility] [facility] to direct Warfarin dose and testing TREATMENT/EQUIPMENT ORDERS: ADAPTIVE EQUIPMENT NEEDED: Front wheeled walker Physical Therapy For: Evalulation/Treatment DISCHARGE MEDICATIONS: Home Meds Reported Medications Meloxicam (MOBIC) 7.5 Mg Tablet, 1 TAB PO DAILY for ANTI INFLAM, #30 TAB 1 Refill 03/20/21 Warfarin Sodium (WARFARIN SODIUM) 5 Mg Tablet, 5 MG PO DAILY for PRE OP, #30 TAB 03/20/21 Ibuprofen (IBUPROFEN) 400 Mg Tablet, 400 MG PO PRN Q4HRS PRN for INFLAMMATION, TAB 03/07/21 Nystatin (NYSTATIN) 15 Gm Cream..g., 1 ADRIA TP TID for yeast inf, #30 GM 09/22/20 Metformin Hcl (METFORMIN HCL) 500 Mg Tablet, 500 MG PO BIDWMEALS for ANTI- DIABETIC, TAB 0 Refills 09/22/20 Glimepiride (GLIMEPIRIDE) 2 Mg Tablet, 1 TAB PO BID for NIDDM, #30 TAB 5 Refills 09/22/20 Losartan/Hydrochlorothiazide (LOSARTAN-HCTZ 100-25 MG TAB) 1 Each Tablet, 1 TAB PO DAILY for HTN, #30 TAB 5 Refills 09/22/20 Acetaminophen (TYLENOL) 325 Mg Tablet, 650 MG PO PRN Q4HRS PRN for PAIN, TAB 08/30/19 Atorvastatin Calcium (LIPITOR) 20 Mg Tablet, 20 MG PO HS for FOR CHOLESTEROL, #30 TAB 0 Refills 08/06/19 Escitalopram Oxalate (ESCITALOPRAM OXALATE) 20 Mg Tablet, 1 TAB PO DAILY for depression, #30 TAB 5 Refills 08/06/19 Bupropion Hcl (WELLBUTRIN SR) 150 Mg Tablet.er, 1 TAB PO BID for depression, #60 TAB 5 Refills 08/06/19 SEEMA MCMAHON MD Mar 22, 2021 07:53
[2021-03-22] MEDS: IV NORMAL SALINE 1000ML BAG 1,000 ML IV SCH (08:00)
[2021-03-22] MEDS: CITALOPRAM 20 MG TABLET. PO SCH (08:58)
[2021-03-22] MEDS: buPROPion SR 150 MG TABLET.SA PO SCH ×2 (08:58→20:02)
[2021-03-22] MEDS: LOSARTAN POTASSIUM 50 MG TABLET. PO SCH (08:59)
[2021-03-22] MEDS: SENNOSIDES/DOCUSATE 8.6/50MG TABLET. PO SCH (08:59)
[2021-03-22] MEDS: GLIMEPIRIDE 2 MG TABLET. PO SCH ×2 (08:59→16:39)
[2021-03-22] MEDS: MULTIVITAMIN with MINERAL TABLET. PO SCH (08:59)
[2021-03-22] MEDS: FERROUS SULFATE 325 MG TABLET. PO SCH ×2 (08:59→16:39)
[2021-03-22] MEDS: metFORMIN 500 MG TABLET PO SCH ×2 (08:59→16:39)
[2021-03-22] MEDS: MELOXICAM 7.5 MG TABLET PO SCH (08:59)
[2021-03-22] MEDS: NYSTATIN 100,000 UNIT/GM TOPICAL CREAM 15GM TUBE. TP SCH ×3 (09:00→20:02)
--- NOTE | 2021-03-22 10:04 | NUR ---
Pharmacy Warfarin Dosing Note S: Pharmacy consulted to assist with anticoagulation therapy started 03/20/21 O: KRISTIE MILLS is a 55 year old F with ELIOT Last INR: 1.2 Last dose of 5 mg given on 03/21/21 at 1739 Ongoing Drug Interactions: CELEXAMAURISIO A:INR of 1.2 is below desired range. Target range for this patient is: 1.6 - 2.5 P: Warfarin dose: 6 mg Today at 1600 Bridge Therapy: None Next INR due 03/23/21 AM Pharmacy anticoagulation service will continue to follow. ALYCE ALEXANDER [facility], 03/22/21 1003
[2021-03-22 11:00] VITALS: BP 110/60
[2021-03-22 11:06] LABS: HEMATOCRIT 34.9 % (36.0-47.0); HEMOGLOBIN 11.5 g/dL (12.0-15.5)
[2021-03-22 15:00] VITALS: BP 95/62
[2021-03-22] MEDS ORDERED: WARFARIN 3 MG TABLET. PO ONE (16:00)
[2021-03-22 19:35] VITALS: BP 114/61
[2021-03-22] MEDS: ATORVASTATIN CALCIUM 20 MG TABLET PO SCH (20:02)
[2021-03-22 23:25] VITALS: BP 105/43
[2021-03-23] MEDS: oxyCODONE IR 5 MG TABLET PO PRN ×2 (00:09→21:25)
[2021-03-23] MEDS: ZOLPIDEM 5 MG TABLET. PO PRN ×2 (00:09→21:25)
[2021-03-23] MEDS: ACETAMINOPHEN 500 MG TABLET PO SCH ×4 (03:00→21:25)
[2021-03-23] MEDS: traMADol 50 MG TABLET PO SCH ×3 (06:07→17:46)
[2021-03-23] MEDS: GABAPENTIN 100 MG CAPSULE. PO SCH ×3 (06:07→21:24)
[2021-03-23 07:00] VITALS: BP 117/57
[2021-03-23 07:49] LABS: HEMATOCRIT 31.1 % (36.0-47.0); HEMOGLOBIN 10.5 g/dL (12.0-15.5)
[2021-03-23] MEDS: IV NORMAL SALINE 1000ML BAG 1,000 ML IV SCH (08:00)
[2021-03-23 08:16] LABS: PROTHROMBIN TIME PATIENT 16.8 SEC (11.7-14.0)
[2021-03-23] MEDS: NYSTATIN 100,000 UNIT/GM TOPICAL CREAM 15GM TUBE. TP SCH (09:00)
[2021-03-23] MEDS: buPROPion SR 150 MG TABLET.SA PO SCH ×2 (10:39→21:24)
[2021-03-23] MEDS: MELOXICAM 7.5 MG TABLET PO SCH (10:40)
[2021-03-23] MEDS: LOSARTAN POTASSIUM 50 MG TABLET. PO SCH (10:41)
[2021-03-23] MEDS: CITALOPRAM 20 MG TABLET. PO SCH (10:41)
[2021-03-23] MEDS: MULTIVITAMIN with MINERAL TABLET. PO SCH (10:41)
[2021-03-23] MEDS: SENNOSIDES/DOCUSATE 8.6/50MG TABLET. PO SCH (10:41)
[2021-03-23] MEDS: metFORMIN 500 MG TABLET PO SCH ×2 (10:42→17:46)
[2021-03-23] MEDS: FERROUS SULFATE 325 MG TABLET. PO SCH ×2 (10:42→17:46)
[2021-03-23] MEDS: GLIMEPIRIDE 2 MG TABLET. PO SCH ×2 (10:42→17:46)
--- NOTE | 2021-03-23 10:47 | NUR ---
Pharmacy Warfarin Dosing Note S:Pharmacy consulted to assist with anticoagulation therapy started 03/20/21 with target INR: 1.6 - 2.5 O:KRISTIE MILLS is a 55 year old F with ELIOT Allergies:No Known Drug Allergies Height: 5 feet, 6 inches Weight: 148.3 kg LABS: Last INR: 1.4 Last HGB: 10.5 Last HCT: 31.1 Last PLT: Ongoing Drug Interactions: CELEXA, MOBIC A:INR below desired Range. Target Range for this patient is: 1.6 - 2.5 P: Warfarin dose: 6 mg will be given today prior to discharge. Give 5 mg daily. Draw INR on 03/26/21 , and request attending physician to dose warfarin for a goal INR 1.6 - 2.5 through end of therapy 04/30/21 (6 weeks of therapy). Indication for warfarin is prevention of VTE after major joint surgery. Brooklyn Xavier RPH, 03/23/21 1048
[2021-03-23 11:00] VITALS: BP 123/59
[2021-03-23] MEDS ORDERED: WARFARIN 3 MG TABLET. PO ONE (14:00)
[2021-03-23 15:00] VITALS: BP 120/66
[2021-03-23 19:00] VITALS: BP 120/66
[2021-03-23] MEDS: ATORVASTATIN CALCIUM 20 MG TABLET PO SCH (21:25)
[2021-03-23 23:00] VITALS: BP 109/53
[2021-03-24 03:00] VITALS: BP 125/53
[2021-03-24] MEDS: ACETAMINOPHEN 500 MG TABLET PO SCH ×2 (03:12→10:04)
[2021-03-24] MEDS: traMADol 50 MG TABLET PO SCH ×2 (03:12→05:58)
[2021-03-24] MEDS: GABAPENTIN 100 MG CAPSULE. PO SCH (05:57)
[2021-03-24 07:00] VITALS: BP 118/61
[2021-03-24 07:00] LABS: PROTHROMBIN TIME PATIENT 16.3 SEC (11.7-14.0)
[2021-03-24] MEDS: IV NORMAL SALINE 1000ML BAG 1,000 ML IV SCH (08:00)
--- NOTE | 2021-03-24 08:22 | PDOC ---
PROGRESS NOTES Date of Service DATE: 03/24/21 TIME: 08:20 Subjective Subjective Problems overnight: Delayed entry from 03/23/2021, getting around well pain controlled, awaiting insurance determination for senior care facility placement Objective Vital Signs Vital Signs Date Time Temp Pulse Resp B/P (MAP) Pulse Ox O2 Delivery O2 Flow Rate FiO2 03/24/21 05:58 16 93 Room Air 3.0 03/24/21 03:00 98.3 81 125/53 (77) 98.3 Physical Exam Bettie dressing clean dry intact leg lengths equal distal neurovascular status intact Labs Laboratory Tests Test 03/22/21 16:31 03/23/21 05:55 03/24/21 06:00 SARS-CoV-2 RNA (CLEM) Negative (Negative) SARS-CoV-2 Antigen (Rapid) Negative (NEGATIVE) Hemoglobin 10.5 g/dL (12.0-15.5) Hematocrit 31.1 % (36.0-47.0) Mean Corpuscular Hemoglobin Concent 34 g/dL (31-37) Prothrombin Time 16.8 SEC (11.7-14.0) 16.3 SEC (11.7-14.0) Prothromb Time International Ratio 1.4 (0.8-1.1) 1.4 (0.8-1.1) Laboratory Tests Test 03/24/21 06:00 Prothrombin Time 16.3 SEC (11.7-14.0) Prothromb Time International Ratio 1.4 (0.8-1.1) Assessment Assessment POD#3 total hip arthroplasty left Plan Plan of Care Patient is doing well medically stable Continue warfarin anticoagulation per pharmacy, plan 6 weeks duration Awaiting insurance action on senior care facility coverage placement Justicifation of Admission Dx: Justifications for Admission: Justification of Admission Dx: N/A SEEMA HERNANDEZ MD March 24, 2021 08:22
[2021-03-24] MEDS: SENNOSIDES/DOCUSATE 8.6/50MG TABLET. PO SCH (10:03)
[2021-03-24] MEDS: FERROUS SULFATE 325 MG TABLET. PO SCH (10:03)
[2021-03-24] MEDS: MULTIVITAMIN with MINERAL TABLET. PO SCH (10:03)
[2021-03-24] MEDS: CITALOPRAM 20 MG TABLET. PO SCH (10:03)
[2021-03-24] MEDS: buPROPion SR 150 MG TABLET.SA PO SCH (10:03)
[2021-03-24] MEDS: metFORMIN 500 MG TABLET PO SCH (10:04)
[2021-03-24] MEDS: GLIMEPIRIDE 2 MG TABLET. PO SCH (10:04)
[2021-03-24] MEDS: MELOXICAM 7.5 MG TABLET PO SCH (10:05)
[2021-03-24] MEDS: LOSARTAN POTASSIUM 50 MG TABLET. PO SCH (10:13)
[2021-03-24 10:14] VITALS: BP 140/61
[2021-03-24] MEDS ORDERED: WARFARIN 5 MG TABLET. PO SCH (16:00)
--- NOTE | 2021-03-26 11:25 | PATHOLOGY ---
[facility] Accession Number: [id number] . 01 Material submitted: . hip - LEFT HIP BONE AND TISSUE. Modifiers: left . 01 Clinical history: . LEFT HIP OSTEOARTHRITIS LEFT HIP TOTAL ARTHROPLASTY . 02 Diagnosis: Bone (left hip bone and tissue): - Osteonecrosis with changes consistent with healing fracture site are identified. . (SWK:mml; 03/23/2021) [facility] 03/23/2021 1530 Local . 02 Comment: We find no evidence of malignancy in any of the tissue examined. . (SWK:mml; 03/23/2021) . 02 Electronically signed: . Stalin Wright MD, Pathologist NPI- [id number] . 01 Gross description: . The specimen is received in formalin, labeled "Enid Callaway, left hip bone and tissue". Received is a femoral head measuring 4.5 x 4.4 x 3.9 cm in greatest dimensions. The articular surface is smooth to granular in appearance with evidence of eburnation. Sectioning reveals yellow-duran cut surfaces with no grossly distinct nodules or lesions. The specimen is submitted representatively in cassette A1, following decalcification. . Also received within the specimen container are bone reamings admixed with fragments of femoral neck measuring 7.8 x 6.3 x 2.8 cm in aggregate dimensions. The specimen is submitted representatively in cassette A2, following decalcification. (CAA; 03/22/2021) QAC/QAC 03/22/2021 1252 Local . 02 Pathologist provided ICD-10: M87.9 . 02 CPT . 371708, [id number] Specimen Comment: A courtesy copy of this report has been sent to [phone], [phone] Specimen Comment: [id number] Specimen Comment: Report sent to DR HERNANDEZ / DR MESA Performed at: 01 [facility] [address] [id number] MD Osorio Irwin MD Phone: [phone] Performed at: 02 [facility] [address] [id number] MD Stalin Wright MD Phone: [phone]
== END 2021-03-24 11:49 | DRG 470 ==
LOC: SURG 07:23 → 4 NORTH 07:51 → OBSVTOIN 03-22 17:11
PROVIDERS: ADMIT Orthopaedic Surgery; ATTEND Orthopaedic Surgery
PROC: 0SRB04Z Replacement of Left Hip Joint with Ceramic on Polyethylene Synthetic Substitute, Open Approach (ICD-10-PCS; principal; 2021-03-20 09:15)
DX: M16.12 Unilateral primary osteoarthritis, left hip (principal); E11.9 Type 2 diabetes mellitus without complications; E78.5 Hyperlipidemia, unspecified; I10 Essential (primary) hypertension; Z96.643 Presence of artificial hip joint, bilateral; E55.9 Vitamin D deficiency, unspecified; F32.9 Major depressive disorder, single episode, unspecified; Z20.822 Contact with and (suspected) exposure to COVID-19; Z87.891 Personal history of nicotine dependence; Z98.51 Tubal ligation status
CPT/HCPCS: 36415; 73502; 82962; 85014; 85018; 85610; 85730; 86850; 86900; 86901; 87426; 88304; 88311; A4213; A4930; A6258; A6550; C1755; C1776; G0378; G0379; J0171; J0690; J0780; J1170; J1815; J1885; J2250; J2270; J2710; J2795; J3010; J3370; J3490; J7030; J7060; U0003; U0005; 97110-GP; 97116-GP; 97530-GO; 97530-GP; 97535-GO